=== PATIENT | male | born 1955 | race Caucasian/White ===

== ENCOUNTER 2017-12-15 20:01 | Emergency (ER) | payer BC, SELFPAY ==
[2017-12-15 20:03] VITALS: BP 160/87; PULSE 73; RESP 18; TEMP 36.8; O2SAT 97
--- NOTE | 2017-12-15 21:21 | W.ED.GENAD ---
Discharge Plan Disposition Patient Disposition: HOME Condition: Good Discharge Details Chief Complaint: DentalOral Clinical Impression: Swollen upper lip Primary Care Provider: Grey Zhang ED Provider: Ted Johnson Home Meds and New Rx's Prescriptions: New clindamycin HCl 150 mg capsule 450 mg PO TID Qty: 63 RF: 0 Continue naproxen sodium [Aleve] 220 MG tablet 220 mg PO daily prn RF: 0 melatonin 3 MG tablet 3 mg PO HS RF: 0 flaxseed oil 1,000 MG capsule 3 tab PO DAILY RF: 0 CENTRUM SILVER TABLET 1 EACH tablet 1 ea PO DAILY RF: 0 trazodone 50 MG tablet 50 mg PO HS Qty: 90 RF: 3 omeprazole 20 MG capsule,delayed release(DR/EC) 20 mg PO DAILY Qty: 90 RF: 3 Discharge Instructions Additional Instructions: At this point it is not clear what is causing the lip swelling. It is possible that it is an early infection but for now I would not start antibiotics. We will give you prescription for clindamycin so that if it becomes painful, more swollen, red would go ahead and start antibiotic. Follow-up with your dentist on Monday as planned. Return to ED for increasing pain, fever, swelling Discharge Data Discharge Date/Time-TO BE ENTERED AT DEPARTURE: 12/15/17 21:31 Medical Decision Making Patient with a firm nodular type lesion in the left upper lip which does make it appears swollen. It is not fluctuant. It is not tender. It is not erythematous. It is not associated with dental abscess. He does not appear to be an allergic type reaction. There is no obvious trauma. Possible that this is an early infection but I am not convinced that is the case. Over the weekend I will have him try hot compresses and just kind of see what happens. If it continues to get larger, painful, red I am providing him a prescription for clindamycin to start. He already has an appointment to see his dentist on Monday. Return to ED for any significant worsening symptoms. HPI General Mode of arrival: ambulatory. Date/Time Provider Initiated Documentation: 12/15/17 20:50. Limitations to Documentation: no limitations. Information obtained by: patient. HPI Narrative: Patient presents to ED with left upper lip swelling. Patient first noticed something earlier in the week. Per his inside part of the lip looked purplish. That is subsequently resolved. However, the lip seems to be getting bigger. It is not really painful at all. He has no difficulty breathing or swallowing. He does not have dental pain. He has no redness or warmth to the area. He otherwise feels well. There is no specific trauma that he relates. Today it seems to be getting larger in size so he came in for evaluation. Related Data Home Medications Medication Instructions Recorded Confirmed naproxen sodium [Aleve] 220 mg PO daily prn 06/05/12 12/15/17 Centrum Silver Tablet 1 ea PO DAILY 07/17/12 12/15/17 flaxseed oil 3 tab PO DAILY 07/17/12 12/15/17 melatonin 3 mg PO HS 07/17/12 12/15/17 trazodone 50 mg PO HS #90 tab 03/22/17 12/15/17 omeprazole 20 mg PO DAILY #90 tab-cap 04/28/17 12/15/17 clindamycin HCl 450 mg PO TID #63 cap 12/15/17 Previous Rx's Medication Instructions Recorded trazodone 50 mg PO HS #90 tab 03/22/17 omeprazole 20 mg PO DAILY #90 tab-cap 04/28/17 clindamycin HCl 450 mg PO TID #63 cap 12/15/17 Allergies Allergy/AdvReac Type Severity Reaction Status Date / Time gabapentin AdvReac Intermediate h/a's Unverified 12/15/17 20:05 erythromycin base AdvReac NAUSEA Unverified 12/15/17 20:05 General Stated Complaint: DentalOral YU: 4 Review of Systems Constitutional Denies chills, Denies fever(s), Denies headache(s), Denies malaise, Denies night sweats and Denies weight loss Eyes Denies eye discharge, Denies other visual disturbances and Denies eye pain ENT Denies dental pain, Denies otalgia, Denies facial pain, Denies headache(s), Reports lip swelling, Denies mouth pain, Denies nasal congestion, Denies neck pain, Denies sore throat, Denies throat swelling and Denies tongue swelling Cardiovascular Denies dyspnea Respiratory Denies dyspnea Musculoskeletal Denies neck pain Neurologic Denies headache(s) Hematologic/Lymphatic Denies lymphadenopathy Allergic/Immunologic Reports lip swelling, Denies throat swelling and Denies tongue swelling [facility] Family History Mother No problems noted. Father No problems noted. Sister No problems noted. Brother No problems noted. Brother No problems noted. Grandfather No problems noted. Grandfather Heart disease Grandmother No problems noted. Grandmother Cerebrovascular accident Medical History GERD (gastroesophageal reflux disease) (Chronic) Leukemia (Chronic) Social History Smoking/Tobacco Use Status: Never Surgical History Hernia Repair, Incisional Exam Const General: cooperative, healthy appearing and comfortable Orientation: alert and oriented x3 HENMT Head: normocephalic and atraumatic Ears: external ears normal General nose exam: external nose normal Face and sinus: normal facial exam and sinuses nontender Mouth: oral mucosae normal, tongue normal, oropharynx normal and lip abnormal (firm nontender nodule about the size of peanut in the left upper lip) Teeth and gingiva: dentition normal and gingiva normal Neck Neck: normal visual inspection, full ROM and no lymphadenopathy Neuro General: alert, oriented x3, no focal motor deficits and CN's II-XI intact bilaterally Course Vital Signs Temperature 98.2 F 12/15/17 20:03 Pulse 73 12/15/17 20:03 Respiratory Rate 18 12/15/17 20:03 Blood Pressure 160/87 H 12/15/17 20:03 Pulse Oximetry 97 12/15/17 20:03 Temperature 98.2 F 12/15/17 20:03 Temperature Source Temporal Artery Scan 12/15/17 20:03 Pulse 73 12/15/17 20:03 Respiratory Rate 18 12/15/17 20:03 Blood Pressure 160/87 H 12/15/17 20:03 Pulse Oximetry 97 12/15/17 20:03 Oxygen Delivery Method Room Air 12/15/17 20:03 Oxygen Flow Rate 0 12/15/17 20:03 Pain Level 0 12/15/17 20:03
--- NOTE | 2017-12-15 21:27 | ED.GENADUL_ITS ---
Discharge Plan Disposition Patient Disposition: HOME Condition: Good Discharge Details Chief Complaint: DentalOral Clinical Impression: Swollen upper lip Primary Care Provider: Grey Zhang ED Provider: Ted Johnson Home Meds and New Rx's Prescriptions: New clindamycin HCl 150 mg capsule 450 mg PO TID Qty: 63 RF: 0 Continue naproxen sodium [Aleve] 220 MG tablet 220 mg PO daily prn RF: 0 melatonin 3 MG tablet 3 mg PO HS RF: 0 flaxseed oil 1,000 MG capsule 3 tab PO DAILY RF: 0 CENTRUM SILVER TABLET 1 EACH tablet 1 ea PO DAILY RF: 0 trazodone 50 MG tablet 50 mg PO HS Qty: 90 RF: 3 omeprazole 20 MG capsule,delayed release(DR/EC) 20 mg PO DAILY Qty: 90 RF: 3 Discharge Instructions Additional Instructions: At this point it is not clear what is causing the lip swelling. It is possible that it is an early infection but for now I would not start antibiotics. We will give you prescription for clindamycin so that if it becomes painful, more swollen, red would go ahead and start antibiotic. Follow-up with your dentist on Monday as planned. Return to ED for increasing pain, fever, swelling Discharge Data Discharge Date/Time-TO BE ENTERED AT DEPARTURE: 12/15/17 21:31 Medical Decision Making Patient with a firm nodular type lesion in the left upper lip which does make it appears swollen. It is not fluctuant. It is not tender. It is not erythematous. It is not associated with dental abscess. He does not appear to be an allergic type reaction. There is no obvious trauma. Possible that this is an early infection but I am not convinced that is the case. Over the weekend I will have him try hot compresses and just kind of see what happens. If it continues to get larger, painful, red I am providing him a prescription for clindamycin to start. He already has an appointment to see his dentist on Monday. Return to ED for any significant worsening symptoms. HPI General Mode of arrival: ambulatory . Date/Time Provider Initiated Documentation: 12/15/17 20:50 . Limitations to Documentation: no limitations . Information obtained by: patient . HPI Narrative: Patient presents to ED with left upper lip swelling. Patient first noticed something earlier in the week. Per his inside part of the lip looked purplish. That is subsequently resolved. However, the lip seems to be getting bigger. It is not really painful at all. He has no difficulty breathing or swallowing. He does not have dental pain. He has no redness or warmth to the area. He otherwise feels well. There is no specific trauma that he relates. Today it seems to be getting larger in size so he came in for evaluation. Related Data Home Medications Medication Instructions Recorded Confirmed naproxen sodium [Aleve] 220 mg PO daily prn 06/05/12 12/15/17 Centrum Silver Tablet 1 ea PO DAILY 07/17/12 12/15/17 flaxseed oil 3 tab PO DAILY 07/17/12 12/15/17 melatonin 3 mg PO HS 07/17/12 12/15/17 trazodone 50 mg PO HS #90 tab 03/22/17 12/15/17 omeprazole 20 mg PO DAILY #90 tab-cap 04/28/17 12/15/17 clindamycin HCl 450 mg PO TID #63 cap 12/15/17 Previous Rx's Medication Instructions Recorded trazodone 50 mg PO HS #90 tab 03/22/17 omeprazole 20 mg PO DAILY #90 tab-cap 04/28/17 clindamycin HCl 450 mg PO TID #63 cap 12/15/17 Allergies Allergy/AdvReac Type Severity Reaction Status Date / Time gabapentin AdvReac Intermediate h/a's Unverified 12/15/17 20:05 erythromycin base AdvReac NAUSEA Unverified 12/15/17 20:05 General Stated Complaint: DentalOral YU: 4 Review of Systems Constitutional Denies chills, Denies fever(s), Denies headache(s), Denies malaise, Denies night sweats and Denies weight loss Eyes Denies eye discharge, Denies other visual disturbances and Denies eye pain ENT Denies dental pain, Denies otalgia, Denies facial pain, Denies headache(s), Reports lip swelling, Denies mouth pain, Denies nasal congestion, Denies neck pain, Denies sore throat, Denies throat swelling and Denies tongue swelling Cardiovascular Denies dyspnea Respiratory Denies dyspnea Musculoskeletal Denies neck pain Neurologic Denies headache(s) Hematologic/Lymphatic Denies lymphadenopathy Allergic/Immunologic Reports lip swelling, Denies throat swelling and Denies tongue swelling [facility] Family History Mother No problems noted. Father No problems noted. Sister No problems noted. Brother No problems noted. Brother No problems noted. Grandfather No problems noted. Grandfather Heart disease Grandmother No problems noted. Grandmother Cerebrovascular accident Medical History GERD (gastroesophageal reflux disease) (Chronic) Leukemia (Chronic) Social History Smoking/Tobacco Use Status: Never Surgical History Hernia Repair, Incisional Exam Const General: cooperative, healthy appearing and comfortable Orientation: alert and oriented x3 HENMT Head: normocephalic and atraumatic Ears: external ears normal General nose exam: external nose normal Face and sinus: normal facial exam and sinuses nontender Mouth: oral mucosae normal, tongue normal, oropharynx normal and lip abnormal ( firm nontender nodule about the size of peanut in the left upper lip) Teeth and gingiva: dentition normal and gingiva normal Neck Neck: normal visual inspection, full ROM and no lymphadenopathy Neuro General: alert, oriented x3, no focal motor deficits and CN's II-XI intact bilaterally Course Vital Signs Temperature 98.2 F 12/15/17 20:03 Pulse 73 12/15/17 20:03 Respiratory Rate 18 12/15/17 20:03 Blood Pressure 160/87 H 12/15/17 20:03 Pulse Oximetry 97 12/15/17 20:03 Temperature 98.2 F 12/15/17 20:03 Temperature Source Temporal Artery Scan 12/15/17 20:03 Pulse 73 12/15/17 20:03 Respiratory Rate 18 12/15/17 20:03 Blood Pressure 160/87 H 12/15/17 20:03 Pulse Oximetry 97 12/15/17 20:03 Oxygen Delivery Method Room Air 12/15/17 20:03 Oxygen Flow Rate 0 12/15/17 20:03 Pain Level 0 12/15/17 20:03
[2017-12-15 21:30] VITALS: BP 160/87; PULSE 73; RESP 18; TEMP 36.8; O2SAT 97
== END 2017-12-15 21:31 | disposition home or self-care (01) ==
PROVIDERS: Emergency Provider Emergency Medicine; PCP Emergency Medicine
DX: R60.0 Localized edema (principal); R22.0 Localized swelling, mass and lump, head
CPT/HCPCS: 99283

== ENCOUNTER 2017-12-27 14:06 | Emergency (ER) | payer BC, SELFPAY ==
[2017-12-27 14:15] VITALS: BP 112/85; PULSE 87; RESP 16; TEMP 37.1; O2SAT 95
[2017-12-27 16:42] LABS: Abs Immature Grans 0.01 k/cumm (0.0-0.09); Absolute Basophil Count 0.01 k/cumm (0.0-0.2); Absolute Eosinophil Count 0.07 k/cumm (0.0-0.7); Absolute Lymphocyte Count 1.05 k/cumm (1.2-3.4); Absolute Monocyte Count 1.25 k/cumm (0.11-0.7); Absolute Neutrophil Count 1.84 k/cumm (1.2-6.7); Basophils % 0.2; Eosinophils % 1.7; HCT 39.1 % (40.0-50.0); HGB 12.8 g/dL (13.5-17.5); Immature Grans % 0.2; Lymphocytes % 24.8; Mean Corp. HGB Concentration 32.7 g/dL (32.0-36.0); Mean Corpuscular Hemoglobin 31.3 pg (27.0-33.0); Mean Corpuscular Volume 95.6 fL (80-95); Mean Platelet Volume 7.9 fL (8.0-11.0); Monocytes % 29.6; Neutrophils % 43.5; Platelet Count 155 x1000/uL (130-400); RBC 4.09 m/cumm (4.50-6.00); RBC Distribution Width 14.9 % (11.8-14.1); White Blood Cell Count 4.23 k/cumm (4.4-10.8)
[2017-12-27 17:18] LABS: ALT 29 U/L (12-78); AST 26 U/L (15-37); Albumin 3.2 g/dL (3.4-5.0); Alkaline Phosphatase 67 U/L (46-116); Anion Gap 6.8 mmol/L (3-11); BUN 15 mg/dL (7-18); Bilirubin, Total 0.5 mg/dL (0.2-1.0); CO2 31.2 mmol/L (21.0-32.0); Calcium 8.6 mg/dL (8.5-10.1); Chloride 103 mmol/L (98-107); Glucose 81 mg/dL (70-100); Potassium 3.5 mmol/L (3.5-5.1); Sodium 141 mmol/L (136-145); Total Protein 6.8 g/dL (6.4-8.2)
--- NOTE | 2017-12-27 19:36 | W.ED.GENAD ---
Discharge Plan Disposition Patient Disposition: HOME Condition: Stable Discharge Details Chief Complaint: Nausea/Vomit/Diar Clinical Impression: Diarrhea, Anemia Primary Care Provider: Grey Zhang ED Provider: Jeimy Langford Home Meds and New Rx's Prescriptions: Continue naproxen sodium [Aleve] 220 MG tablet 220 mg PO daily prn RF: 0 CENTRUM SILVER TABLET 1 EACH tablet 1 ea PO DAILY RF: 0 trazodone 50 MG tablet 50 mg PO HS Qty: 90 RF: 3 omeprazole 20 MG capsule,delayed release(DR/EC) 20 mg PO DAILY Qty: 90 RF: 3 Discontinued clindamycin HCl 150 mg capsule 450 mg PO TID Qty: 63 RF: 0 No Action azithromycin 250 mg tablet See Label Instructions PO .COMPLEX Qty: 6 RF: 0 flaxseed oil 1,000 mg capsule 2,000 mg PO DAILY RF: 0 melatonin 3 mg tablet 6 mg PO HS RF: 0 Discharge Instructions Instructions: Acute Diarrhea (ED), Anemia (ED) Additional Instructions: Please return immediately to the emergency department if you develop any new or worsening symptoms or if you become otherwise concerned. It is extremely important that you make an appointment to be seen by your primary care doctor within the next 1-2 weeks in follow-up this visit. 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 Pt is very well and non-toxic appearing on exam. Concern for infectious diarrhea, possible lyte derangement given time course, less likely GI bleed. Exam/hx not c/w pancreatitis, acute aortic etiology, appendicitis, sepsis. Plan for screening labs, stool studies. Hemoccult postiive. Labs okay but with mild anemia, plan for repeat H&H. Repeat okay. Will hold abx pending stool studies. Lengthy discussion with Pt re: RTED precautions and importance of outpt f/u with PCP. Pt is amenable to the plan. Medical Records Medical records reviewed: Yes I reviewed the patient's medical records. Lab Data Lab results reviewed: Yes I reviewed the patient's lab results. 12/27/17 17:40 Stool Clostridium difficile Screen - Final Laboratory Tests Range/Units 12/27/17 12/27/17 12/27/17 16:35 16:35 17:00 WBC (4.4-10.8) k/cumm 4.23 L RBC (4.50-6.00) m/cumm 4.09 L Hgb (13.5-17.5) g/dL 12.8 L Hct (40.0-50.0) % 39.1 L MCV (80-95) fL 95.6 H MCH (27.0-33.0) pg 31.3 MCHC (32.0-36.0) g/dL 32.7 RDW (11.8-14.1) % 14.9 H Plt Count (130-400) x1000/uL 155 MPV (8.0-11.0) fL 7.9 L Immature Gran % 0.2 Neutrophils % 43.5 Lymphocytes % 24.8 Monocytes % 29.6 Eosinophils % 1.7 Basophils % 0.2 Absolute Neutrophils (1.2-6.7) k/cumm 1.84 Absolute Lymphocytes (1.2-3.4) k/cumm 1.05 L Absolute Monocytes (0.11-0.7) k/cumm 1.25 H Absolute Eosinophils (0.0-0.7) k/cumm 0.07 Absolute Basophils (0.0-0.2) k/cumm 0.01 Sodium (136-145) mmol/L 141 Potassium (3.5-5.1) mmol/L 3.5 Chloride (98-107) mmol/L 103 Carbon Dioxide (21.0-32.0) mmol/L 31.2 Anion Gap (3-11) mmol/L 6.8 BUN (7-18) mg/dL 15 Creatinine (0.70-1.30) mg/dL 0.90 Estimated GFR/1.73 m2 (mL/min/1.73m2) >= 60.00 Glucose (70-100) mg/dL 81 Calcium (8.5-10.1) mg/dL 8.6 Total Bilirubin (0.2-1.0) mg/dL 0.5 AST (15-37) U/L 26 ALT (12-78) U/L 29 Alkaline Phosphatase (46-116) U/L 67 Total Protein (6.4-8.2) g/dL 6.8 Albumin (3.4-5.0) g/dL 3.2 L Stool Source Stool Campylobacter PCR See comments A Stool Salmonella PCR See comments Stool Shigella PCR See comments Cryptosporidium/Giardia Shiga Toxin (PCR) See comments Parasite Rprt Status Range/Units 12/27/17 12/27/17 17:40 20:00 WBC (4.4-10.8) k/cumm RBC (4.50-6.00) m/cumm Hgb (13.5-17.5) g/dL 12.9 L Hct (40.0-50.0) % 39.7 L MCV (80-95) fL MCH (27.0-33.0) pg MCHC (32.0-36.0) g/dL RDW (11.8-14.1) % Plt Count (130-400) x1000/uL MPV (8.0-11.0) fL Immature Gran % Neutrophils % Lymphocytes % Monocytes % Eosinophils % Basophils % Absolute Neutrophils (1.2-6.7) k/cumm Absolute Lymphocytes (1.2-3.4) k/cumm Absolute Monocytes (0.11-0.7) k/cumm Absolute Eosinophils (0.0-0.7) k/cumm Absolute Basophils (0.0-0.2) k/cumm Sodium (136-145) mmol/L Potassium (3.5-5.1) mmol/L Chloride (98-107) mmol/L Carbon Dioxide (21.0-32.0) mmol/L Anion Gap (3-11) mmol/L BUN (7-18) mg/dL Creatinine (0.70-1.30) mg/dL Estimated GFR/1.73 m2 (mL/min/1.73m2) Glucose (70-100) mg/dL Calcium (8.5-10.1) mg/dL Total Bilirubin (0.2-1.0) mg/dL AST (15-37) U/L ALT (12-78) U/L Alkaline Phosphatase (46-116) U/L Total Protein (6.4-8.2) g/dL Albumin (3.4-5.0) g/dL Stool Source (see note) Stool Campylobacter PCR Stool Salmonella PCR Stool Shigella PCR Cryptosporidium/Giardia (see note) Shiga Toxin (PCR) Parasite Rprt Status (see note) HPI General Mode of arrival: ambulatory. Date/Time Provider Initiated Documentation: 12/27/17 14:23. Limitations to Documentation: no limitations. Information obtained by: patient, RN notes reviewed and old records reviewed. 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 Pt reports that 5 days ago he developed watery diarrhea, having multiple episodes per day. Frequency of bowel movements has decreased, but watery BMs persist. Mild intermittent abdominal cramping just prior to BMs, but no current pain. Pt reports color of stool as light brown without blood. No fevers, no n/v, no rash, no SOB, no cough, no weakness, no n/t. Never with similar symptoms in the past. No recent abx. No recent travel. No illness. Pt with normal appetite but has been eating somewhat less than usual as eating seems to worsen frequency of BMs. Took immodium several times a few days ago without change in symptoms. Related Data Home Medications Medication Instructions Recorded Confirmed naproxen sodium [Aleve] 220 mg PO daily prn 06/05/12 01/04/18 Centrum Silver Tablet 1 ea PO DAILY 07/17/12 01/04/18 trazodone 50 mg PO HS #90 tab 03/22/17 01/04/18 omeprazole 20 mg PO DAILY #90 tab-cap 04/28/17 01/04/18 azithromycin 250 mg tablet See Label Instructions PO .COMPLEX 01/04/18 01/04/18 #6 tab flaxseed oil 1,000 mg capsule 2,000 mg PO DAILY cap 01/04/18 01/04/18 melatonin 3 mg tablet 6 mg PO HS tab 01/04/18 01/04/18 Previous Rx's Medication Instructions Recorded trazodone 50 mg PO HS #90 tab 03/22/17 omeprazole 20 mg PO DAILY #90 tab-cap 04/28/17 azithromycin 250 mg tablet See Label Instructions PO .COMPLEX 01/04/18 #6 tab Allergies Allergy/AdvReac Type Severity Reaction Status Date / Time gabapentin AdvReac Intermediate h/a's Unverified 01/04/18 08:59 erythromycin base AdvReac NAUSEA Unverified 01/04/18 08:59 General Stated Complaint: Nausea/Vomit/Diar YU: 3 Review of Systems Review of Systems Constitutional: denies fevers Eyes: denies eye pain ENT: denies facial pain, dental pain, sore throat Cardiovascular: denies chest pain, edema Respiratory: denies SOB, cough GI: denies vomiting, reports mild intermittent abdominal pain, diarrhea : denies flank pain MSK: denies back pain, neck pain, arthralgias, myalgias Skin: denies rash Neuro: denies headaches, lightheadedness, weakness Exam Narrative Exam Narrative: Constitutional: well and [id number], pleasant, conversing normally HENT: head atraumatic, normocephalic normal inspection, mucous membranes moist Eyes: conjunctiva normal, sclera normal, pupils 3mm b/l Neck: no stridor, normal ROM, trachea midline Chest: normal inspection Resp: normal work of breathing, LCTAB Cardio: normal rate, normal rhythm, no murmur appreciated GI: abdomen soft, non-tender, non-distended Back: normal inspection, no rash Skin: warm, dry, normal color, no rash Neuro: alert, not altered, grossly non-focal, normal tone Ext: no edema Psych: normal mood, normal affect, normal behavior Course Vital Signs Temperature 37.1 C 12/27/17 14:15 Pulse 87 12/27/17 14:15 Respiratory Rate 16 12/27/17 14:15 Blood Pressure 112/85 12/27/17 14:15 Pulse Oximetry 95 12/27/17 14:15 Temperature 37.1 C 12/27/17 14:15 Temperature Source Skin 12/27/17 14:15 Pulse 87 12/27/17 14:15 Respiratory Rate 16 12/27/17 14:15 Respiratory Effort 12/27/17 14:19 Blood Pressure 112/85 12/27/17 14:15 Blood Pressure Position Sitting 12/27/17 14:15 Pulse Oximetry 95 12/27/17 14:15 Oxygen Delivery Method Room Air 12/27/17 14:15 Oxygen Flow Rate 0 12/27/17 14:15 Pain Level 3 12/27/17 14:15 Lab/Test Results Lab/Test Results: 12/27/17 17:40 Stool Clostridium difficile Screen - Final Laboratory Tests Range/Units 12/27/17 12/27/17 16:35 16:35 WBC (4.4-10.8) k/cumm 4.23 L RBC (4.50-6.00) m/cumm 4.09 L Hgb (13.5-17.5) g/dL 12.8 L Hct (40.0-50.0) % 39.1 L MCV (80-95) fL 95.6 H MCH (27.0-33.0) pg 31.3 MCHC (32.0-36.0) g/dL 32.7 RDW (11.8-14.1) % 14.9 H Plt Count (130-400) x1000/uL 155 MPV (8.0-11.0) fL 7.9 L Immature Gran % 0.2 Neutrophils % 43.5 Lymphocytes % 24.8 Monocytes % 29.6 Eosinophils % 1.7 Basophils % 0.2 Absolute Neutrophils (1.2-6.7) k/cumm 1.84 Absolute Lymphocytes (1.2-3.4) k/cumm 1.05 L Absolute Monocytes (0.11-0.7) k/cumm 1.25 H Absolute Eosinophils (0.0-0.7) k/cumm 0.07 Absolute Basophils (0.0-0.2) k/cumm 0.01 Sodium (136-145) mmol/L 141 Potassium (3.5-5.1) mmol/L 3.5 Chloride (98-107) mmol/L 103 Carbon Dioxide (21.0-32.0) mmol/L 31.2 Anion Gap (3-11) mmol/L 6.8 BUN (7-18) mg/dL 15 Creatinine (0.70-1.30) mg/dL 0.90 Estimated GFR/1.73 m2 (mL/min/1.73m2) >= 60.00 Glucose (70-100) mg/dL 81 Calcium (8.5-10.1) mg/dL 8.6 Total Bilirubin (0.2-1.0) mg/dL 0.5 AST (15-37) U/L 26 ALT (12-78) U/L 29 Alkaline Phosphatase (46-116) U/L 67 Total Protein (6.4-8.2) g/dL 6.8 Albumin (3.4-5.0) g/dL 3.2 L
[2017-12-27 20:07] LABS: HCT 39.7 % (40.0-50.0); HGB 12.9 g/dL (13.5-17.5)
[2017-12-27 20:23] VITALS: BP 120/58; PULSE 78; RESP 16; TEMP 36.8; O2SAT 98
[2017-12-29 14:00] LABS: Campylobacter PCR SEE COMMENTS; Salmonella PCR SEE COMMENTS; Shiga Toxin PCR SEE COMMENTS; Shigella/Enteroinvasive Ecoli SEE COMMENTS
--- NOTE | 2018-01-01 11:24 | W.ED.FU ---
Follow Up Plan: Discussed with patient positive Campylobacter result reported by [facility] of [facility]. We will place him on 3 days of azithromycin to be called in to [facility]
--- NOTE | 2018-01-01 11:24 | ED.FU.B_ITS ---
Follow Up Plan: Discussed with patient positive Campylobacter result reported by [facility]. We will place him on 3 days of azithromycin to be called in to [facility]
--- NOTE | 2018-01-01 11:38 | NUR.NOTE ---
Nursing Note: Anabel Glez RN from the [facility] ([phone]. She stated the patient is camplobacter positive. Dr. Sin notified the patient of this test result and Azithromycin 500mg PO QD for [phone] I called Anabel Glez back and left a message for her that the patient was notified of this result as she requested and was put on the antibiotic. Bindu Chan.
--- NOTE | 2018-01-09 21:20 | ED.GENADUL_ITS ---
Discharge Plan Disposition Patient Disposition: HOME Condition: Stable Discharge Details Chief Complaint: Nausea/Vomit/Diar Clinical Impression: Diarrhea, Anemia Primary Care Provider: Grey Zhang ED Provider: Jeimy Langford Home Meds and New Rx's Prescriptions: Continue naproxen sodium [Aleve] 220 MG tablet 220 mg PO daily prn RF: 0 CENTRUM SILVER TABLET 1 EACH tablet 1 ea PO DAILY RF: 0 trazodone 50 MG tablet 50 mg PO HS Qty: 90 RF: 3 omeprazole 20 MG capsule,delayed release(DR/EC) 20 mg PO DAILY Qty: 90 RF: 3 Discontinued clindamycin HCl 150 mg capsule 450 mg PO TID Qty: 63 RF: 0 No Action azithromycin 250 mg tablet See Label Instructions PO .COMPLEX Qty: 6 RF: 0 flaxseed oil 1,000 mg capsule 2,000 mg PO DAILY RF: 0 melatonin 3 mg tablet 6 mg PO HS RF: 0 Discharge Instructions Instructions: Acute Diarrhea (ED), Anemia (ED) Additional Instructions: Please return immediately to the emergency department if you develop any new or worsening symptoms or if you become otherwise concerned. It is extremely important that you make an appointment to be seen by your primary care doctor within the next 1-2 weeks in follow-up this visit. 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 Pt is very well and non-toxic appearing on exam. Concern for infectious diarrhea , possible lyte derangement given time course, less likely GI bleed. Exam/hx not c/w pancreatitis, acute aortic etiology, appendicitis, sepsis. Plan for screening labs, stool studies. Hemoccult postiive. Labs okay but with mild anemia, plan for repeat H&H. Repeat okay. Will hold abx pending stool studies. Lengthy discussion with Pt re : RTED precautions and importance of outpt f/u with PCP. Pt is amenable to the plan. Medical Records Medical records reviewed: Yes I reviewed the patient's medical records. Lab Data Lab results reviewed: Yes I reviewed the patient's lab results. 12/27/17 17:40 Stool Clostridium difficile Screen - Final Laboratory Tests Range/Units 12/27/17 12/27/17 12/27/17 16:35 16:35 17:00 WBC (4.4-10.8) k/cumm 4.23 L RBC (4.50-6.00) m/cumm 4.09 L Hgb (13.5-17.5) g/dL 12.8 L Hct (40.0-50.0) % 39.1 L MCV (80-95) fL 95.6 H MCH (27.0-33.0) pg 31.3 MCHC (32.0-36.0) g/dL 32.7 RDW (11.8-14.1) % 14.9 H Plt Count (130-400) x1000/uL 155 MPV (8.0-11.0) fL 7.9 L Immature Gran % 0.2 Neutrophils % 43.5 Lymphocytes % 24.8 Monocytes % 29.6 Eosinophils % 1.7 Basophils % 0.2 Absolute Neutrophils (1.2-6.7) k/cumm 1.84 Absolute Lymphocytes (1.2-3.4) k/cumm 1.05 L Absolute Monocytes (0.11-0.7) k/cumm 1.25 H Absolute Eosinophils (0.0-0.7) k/cumm 0.07 Absolute Basophils (0.0-0.2) k/cumm 0.01 Sodium (136-145) mmol/L 141 Potassium (3.5-5.1) mmol/L 3.5 Chloride (98-107) mmol/L 103 Carbon Dioxide (21.0-32.0) mmol/L 31.2 Anion Gap (3-11) mmol/L 6.8 BUN (7-18) mg/dL 15 Creatinine (0.70-1.30) mg/dL 0.90 Estimated GFR/1.73 m2 (mL/min/1.73m2) >= 60.00 Glucose (70-100) mg/dL 81 Calcium (8.5-10.1) mg/dL 8.6 Total Bilirubin (0.2-1.0) mg/dL 0.5 AST (15-37) U/L 26 ALT (12-78) U/L 29 Alkaline Phosphatase (46-116) U/L 67 Total Protein (6.4-8.2) g/dL 6.8 Albumin (3.4-5.0) g/dL 3.2 L Stool Source Stool Campylobacter PCR See comments A Stool Salmonella PCR See comments Stool Shigella PCR See comments Cryptosporidium/Giardia Shiga Toxin (PCR) See comments Parasite Rprt Status Range/Units 12/27/17 12/27/17 17:40 20:00 WBC (4.4-10.8) k/cumm RBC (4.50-6.00) m/cumm Hgb (13.5-17.5) g/dL 12.9 L Hct (40.0-50.0) % 39.7 L MCV (80-95) fL MCH (27.0-33.0) pg MCHC (32.0-36.0) g/dL RDW (11.8-14.1) % Plt Count (130-400) x1000/uL MPV (8.0-11.0) fL Immature Gran % Neutrophils % Lymphocytes % Monocytes % Eosinophils % Basophils % Absolute Neutrophils (1.2-6.7) k/cumm Absolute Lymphocytes (1.2-3.4) k/cumm Absolute Monocytes (0.11-0.7) k/cumm Absolute Eosinophils (0.0-0.7) k/cumm Absolute Basophils (0.0-0.2) k/cumm Sodium (136-145) mmol/L Potassium (3.5-5.1) mmol/L Chloride (98-107) mmol/L Carbon Dioxide (21.0-32.0) mmol/L Anion Gap (3-11) mmol/L BUN (7-18) mg/dL Creatinine (0.70-1.30) mg/dL Estimated GFR/1.73 m2 (mL/min/1.73m2) Glucose (70-100) mg/dL Calcium (8.5-10.1) mg/dL Total Bilirubin (0.2-1.0) mg/dL AST (15-37) U/L ALT (12-78) U/L Alkaline Phosphatase (46-116) U/L Total Protein (6.4-8.2) g/dL Albumin (3.4-5.0) g/dL Stool Source (see note) Stool Campylobacter PCR Stool Salmonella PCR Stool Shigella PCR Cryptosporidium/Giardia (see note) Shiga Toxin (PCR) Parasite Rprt Status (see note) HPI General Mode of arrival: ambulatory . Date/Time Provider Initiated Documentation: 12/27/17 14:23 . Limitations to Documentation: no limitations . Information obtained by: patient, RN notes reviewed and old records reviewed . 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 Pt reports that 5 days ago he developed watery diarrhea, having multiple episodes per day. Frequency of bowel movements has decreased, but watery BMs persist. Mild intermittent abdominal cramping just prior to BMs, but no current pain. Pt reports color of stool as light brown without blood. No fevers, no n/v, no rash, no SOB, no cough, no weakness, no n/ t. Never with similar symptoms in the past. No recent abx. No recent travel. No illness. Pt with normal appetite but has been eating somewhat less than usual as eating seems to worsen frequency of BMs. Took immodium several times a few days ago without change in symptoms. Related Data Home Medications Medication Instructions Recorded Confirmed naproxen sodium [Aleve] 220 mg PO daily prn 06/05/12 01/04/18 Centrum Silver Tablet 1 ea PO DAILY 07/17/12 01/04/18 trazodone 50 mg PO HS #90 tab 03/22/17 01/04/18 omeprazole 20 mg PO DAILY #90 tab-cap 04/28/17 01/04/18 azithromycin 250 mg tablet See Label Instructions PO .COMPLEX 01/04/18 01/04/18 #6 tab flaxseed oil 1,000 mg capsule 2,000 mg PO DAILY cap 01/04/18 01/04/18 melatonin 3 mg tablet 6 mg PO HS tab 01/04/18 01/04/18 Previous Rx's Medication Instructions Recorded trazodone 50 mg PO HS #90 tab 03/22/17 omeprazole 20 mg PO DAILY #90 tab-cap 04/28/17 azithromycin 250 mg tablet See Label Instructions PO .COMPLEX 01/04/18 #6 tab Allergies Allergy/AdvReac Type Severity Reaction Status Date / Time gabapentin AdvReac Intermediate h/a's Unverified 01/04/18 08:59 erythromycin base AdvReac NAUSEA Unverified 01/04/18 08:59 General Stated Complaint: Nausea/Vomit/Diar YU: 3 Review of Systems Review of Systems Constitutional: denies fevers Eyes: denies eye pain ENT: denies facial pain, dental pain, sore throat Cardiovascular: denies chest pain, edema Respiratory: denies SOB, cough GI: denies vomiting, reports mild intermittent abdominal pain, diarrhea : denies flank pain MSK: denies back pain, neck pain, arthralgias, myalgias Skin: denies rash Neuro: denies headaches, lightheadedness, weakness Exam Narrative Exam Narrative: Constitutional: well and [id number], pleasant, conversing normally HENT: head atraumatic, normocephalic normal inspection, mucous membranes moist Eyes: conjunctiva normal, sclera normal, pupils 3mm b/l Neck: no stridor, normal ROM, trachea midline Chest: normal inspection Resp: normal work of breathing, LCTAB Cardio: normal rate, normal rhythm, no murmur appreciated GI: abdomen soft, non-tender, non-distended Back: normal inspection, no rash Skin: warm, dry, normal color, no rash Neuro: alert, not altered, grossly non-focal, normal tone Ext: no edema Psych: normal mood, normal affect, normal behavior Course Vital Signs Temperature 37.1 C 12/27/17 14:15 Pulse 87 12/27/17 14:15 Respiratory Rate 16 12/27/17 14:15 Blood Pressure 112/85 12/27/17 14:15 Pulse Oximetry 95 12/27/17 14:15 Temperature 37.1 C 12/27/17 14:15 Temperature Source Skin 12/27/17 14:15 Pulse 87 12/27/17 14:15 Respiratory Rate 16 12/27/17 14:15 Respiratory Effort 12/27/17 14:19 Blood Pressure 112/85 12/27/17 14:15 Blood Pressure Position Sitting 12/27/17 14:15 Pulse Oximetry 95 12/27/17 14:15 Oxygen Delivery Method Room Air 12/27/17 14:15 Oxygen Flow Rate 0 12/27/17 14:15 Pain Level 3 12/27/17 14:15 Lab/Test Results Lab/Test Results: 12/27/17 17:40 Stool Clostridium difficile Screen - Final Laboratory Tests Range/Units 12/27/17 12/27/17 16:35 16:35 WBC (4.4-10.8) k/cumm 4.23 L RBC (4.50-6.00) m/cumm 4.09 L Hgb (13.5-17.5) g/dL 12.8 L Hct (40.0-50.0) % 39.1 L MCV (80-95) fL 95.6 H MCH (27.0-33.0) pg 31.3 MCHC (32.0-36.0) g/dL 32.7 RDW (11.8-14.1) % 14.9 H Plt Count (130-400) x1000/uL 155 MPV (8.0-11.0) fL 7.9 L Immature Gran % 0.2 Neutrophils % 43.5 Lymphocytes % 24.8 Monocytes % 29.6 Eosinophils % 1.7 Basophils % 0.2 Absolute Neutrophils (1.2-6.7) k/cumm 1.84 Absolute Lymphocytes (1.2-3.4) k/cumm 1.05 L Absolute Monocytes (0.11-0.7) k/cumm 1.25 H Absolute Eosinophils (0.0-0.7) k/cumm 0.07 Absolute Basophils (0.0-0.2) k/cumm 0.01 Sodium (136-145) mmol/L 141 Potassium (3.5-5.1) mmol/L 3.5 Chloride (98-107) mmol/L 103 Carbon Dioxide (21.0-32.0) mmol/L 31.2 Anion Gap (3-11) mmol/L 6.8 BUN (7-18) mg/dL 15 Creatinine (0.70-1.30) mg/dL 0.90 Estimated GFR/1.73 m2 (mL/min/1.73m2) >= 60.00 Glucose (70-100) mg/dL 81 Calcium (8.5-10.1) mg/dL 8.6 Total Bilirubin (0.2-1.0) mg/dL 0.5 AST (15-37) U/L 26 ALT (12-78) U/L 29 Alkaline Phosphatase (46-116) U/L 67 Total Protein (6.4-8.2) g/dL 6.8 Albumin (3.4-5.0) g/dL 3.2 L
== END 2017-12-27 20:30 | disposition home or self-care (01) ==
PROVIDERS: Emergency Provider Student in an Organized Health Care Education/Training Program; PCP Emergency Medicine
DX: R19.7 Diarrhea, unspecified (principal); D64.9 Anemia, unspecified; A04.72 Enterocolitis due to Clostridium difficile, not specified as recurrent
CPT/HCPCS: 80053; 87329; 87505; 99284; 85014; 85018; 85025; 87324

== ENCOUNTER 2018-01-04 09:53 | Outpatient (CLI) | payer BC, SELFPAY ==
[2018-01-04 13:12] LABS: Abs Immature Grans 0.02 k/cumm (0.0-0.09); Absolute Basophil Count 0.02 k/cumm (0.0-0.2); Absolute Lymphocyte Count 1.15 k/cumm (1.2-3.4); Absolute Monocyte Count 0.94 k/cumm (0.11-0.7); Absolute Neutrophil Count 6.35 k/cumm (1.2-6.7); Basophils % 0.2; Eosinophils % 2.3; HCT 42.1 % (40.0-50.0); HGB 13.1 g/dL (13.5-17.5); Immature Grans % 0.2; Lymphocytes % 13.2; Mean Corp. HGB Concentration 31.1 g/dL (32.0-36.0); Mean Corpuscular Volume 96.6 fL (80-95); Mean Platelet Volume 9.4 fL (8.0-11.0); Monocytes % 10.8; Neutrophils % 73.3; Platelet Count 151 x1000/uL (130-400); RBC 4.36 m/cumm (4.50-6.00); White Blood Cell Count 8.68 k/cumm (4.4-10.8)
[2018-01-04 13:35] LABS: ALT 57 U/L (12-78); AST 30 U/L (15-37); Albumin 3.6 g/dL (3.4-5.0); Alkaline Phosphatase 97 U/L (46-116); Anion Gap 10.4 mmol/L (3-11); BUN 21 mg/dL (7-18); Bilirubin, Total 0.4 mg/dL (0.2-1.0); CO2 30.6 mmol/L (21.0-32.0); CREATININE 0.99 mg/dL (0.70-1.30); Calcium 9.4 mg/dL (8.5-10.1); Chloride 103 mmol/L (98-107); Glucose 95 mg/dL (70-100); Potassium 4.2 mmol/L (3.5-5.1); Sodium 144 mmol/L (136-145); Total Protein 7.1 g/dL (6.4-8.2)
[2018-01-04 13:36] LABS: Iron 66 ug/dL (50-175); Total Iron Binding Capacity 280 ug/dL (250-450); Transferrin Sat 24 % (20-55)
[2018-01-04 16:41] LABS: Folate 19.6 ng/mL (8.6-20.0)
== END 2018-01-04 10:13 ==
PROVIDERS: PCP Emergency Medicine; Visit Provider Internal Medicine
DX: R19.7 Diarrhea, unspecified (principal); D64.9 Anemia, unspecified
CPT/HCPCS: 36415; 80053; 82746; 83540; 83550; 85025

== ENCOUNTER 2018-03-30 11:23 | Outpatient (CLI) | payer BC, SELFPAY ==
[2018-03-30 13:22] LABS: Iron 77 ug/dL (50-175); Total Iron Binding Capacity 329 ug/dL (250-450); Transferrin Sat 23 % (20-55)
[2018-03-30 13:36] LABS: Ferritin 68 ng/mL (8-388)
[2018-04-02 08:53] LABS: PSA, Screening 0.8 ng/ml (0-4.5)
== END 2018-03-30 11:43 ==
PROVIDERS: PCP Emergency Medicine; Visit Provider Emergency Medicine
DX: E61.1 Iron deficiency (principal); Z12.5 Encounter for screening for malignant neoplasm of prostate
CPT/HCPCS: 36415; 84153; 82728; 83540; 83550

== ENCOUNTER 2018-08-27 13:13 | Outpatient (CLI) | payer BC, SELFPAY ==
--- NOTE | 2018-08-27 13:12 | DI.RAD_ITS ---
SYMPTOM/DIAGNOSIS: F/U LT SHOULDER CALCIFIC TENDINITIS LEFT SHOULDER: Three views. Comparison 05/03/17. There are again seen calcifications adjacent to the humeral head laterally consistent with calcific tendinitis. Mild degenerative changes are seen at the acromioclavicular joint. The bones are intact and normally mineralized. IMPRESSION: Findings of degenerative changes of the shoulder left. Calcific tendinitis.
== END 2018-08-27 13:33 ==
PROVIDERS: PCP Emergency Medicine; Visit Provider Student in an Organized Health Care Education/Training Program
DX: M75.32 Calcific tendinitis of left shoulder (principal); M19.012 Primary osteoarthritis, left shoulder
CPT/HCPCS: 73030

== ENCOUNTER 2018-10-02 08:01 | Outpatient (CLI) | payer BC, SELFPAY ==
--- NOTE | 2018-10-02 08:00 | DI.RAD_ITS ---
SYMPTOM/DIAGNOSIS: DYSPNEA ON EXERTION, R06.09 PA AND LATERAL CHEST: Comparison is made with 03/11/13. The heart is normal in size. The lungs are clear. The mediastinal structures and pleura appear intact. CONCLUSION: Normal chest.
[2018-10-02 08:25] LABS: Abs Immature Grans 0.01 k/cumm (0.0-0.09); Absolute Basophil Count 0.02 k/cumm (0.0-0.2); Absolute Eosinophil Count 0.34 k/cumm (0.0-0.7); Absolute Lymphocyte Count 0.99 k/cumm (1.2-3.4); Absolute Monocyte Count 0.66 k/cumm (0.11-0.7); Absolute Neutrophil Count 4.43 k/cumm (1.2-6.7); Basophils % 0.3; Eosinophils % 5.3; HCT 44.6 % (40.0-50.0); HGB 14.7 g/dL (13.5-17.5); Immature Grans % 0.2; Lymphocytes % 15.3; Mean Corpuscular Hemoglobin 31.6 pg (27.0-33.0); Mean Corpuscular Volume 95.9 fL (80-95); Mean Platelet Volume 7.9 fL (8.0-11.0); Monocytes % 10.2; Neutrophils % 68.7; Platelet Count 197 x1000/uL (130-400); RBC 4.65 m/cumm (4.50-6.00); RBC Distribution Width 14.7 % (11.8-14.1); White Blood Cell Count 6.45 k/cumm (4.4-10.8)
== END 2018-10-02 08:21 ==
PROVIDERS: PCP Emergency Medicine; Visit Provider Emergency Medicine
DX: R06.09 Other forms of dyspnea (principal)
CPT/HCPCS: 36415; 71046; 85025

== ENCOUNTER 2018-10-10 00:22 | Outpatient (CLI) | payer BC, SELFPAY ==
--- NOTE | 2018-10-10 06:55 | MERGEMPI_ITS ---
*[facility]* *[facility]* [address] [place] [address] Myocardial Perfusion Imaging - SPECT Solomon protocol Date of study: 10/10/2018 *PATIENT PRESENTATION* Height: 177.8cm (70in) Blood Pressure: Weight: 86.8kg (191lb) BSA: 2.09m^2 Ordering physician: Grey Zhang Impressions: - Normal study after maximal exercise. - Low risk of cardiac events. Summary: 1. Myocardial perfusion imaging: No myocardial perfusion defects noted. 2. The calculated left ventricular ejection fraction after stress: 50%. LV global systolic function is low normal. No left ventricular regional motion abnormality. 3. Stress ECG conclusions: The stress ECG is negative. 4. Stress: The target heart rate was achieved. The heart rate response to stress is exaggerated. There is a normal resting blood pressure with an appropriate response to stress. The patient experienced no chest pain during stress. Exercise capacity is average for age. 5. Treadmill exercise testing was performed using the Solomon protocol. The patient exercised for 9 min 32 sec, to protocol stage 3, to a maximal work rate of 11mets. Exercise was terminated due to fatigue. Imaging information: gated. Image quality reduced due to diaphragmatic attenuation. Attenuation correction used. Indication: R06.09. History: REASON FOR TESTING: PATIENT TESTING TODAY FOR FURTHER RISK STRATIFICATION. PATIENT HAS HAD LIFELONG EXERTIONAL DYSPNEA SINCE HE HAD CHEST WALL RADIATION FOR LEUKEMIA IN HIS EARLY 20'S; WORSE IN RECENT MONTHS. HE REPORTS HE GETS SOB EASILY WITH EXERTION, BUT HAS NO ASSOCIATED CHEST PAIN WITH ACTIVITY. HE DENIES CHEST PAIN UPOON ARRIVAL TO TESTING TODAY. SIGNIFICANT PAST MEDICAL HISTORY: DYSPNEA ON EXERTION, GERD, MYELOID LEUKEMIA, OBSTRUCTIVE SLEEP APNEA, SMOKING STATUS: NEVER. 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 ALLERGIES: GABAPENTIN, ERYTHROMYCIN. MEDICATIONS: TRAZODONE 50 MG HS, OMEPRAZOLE 20 MG DAILY, ALEVE 220 MG PRN, MELATONIN 6 MG HS PRN, FLAXSEED OIL 2000 MG DAILY, MULTIVITAMIN DAILY, ALBUTEROL IH PRN, SYMBICORT IH DAILY. Imaging Technique: Protocol: Solomon protocol. Acquisition: Gated SPECT; 1 day - rest/stress. The patient was imaged in the supine position. Attenuation correction used. Isotope administration: - Rest. Tc[99m]-sestamibi. Dose: 10.1mCi. Injection time: 10:00 AM. Injection to stress time: 00:45. - Stress. Tc[99m]-sestamibi. Dose: 32.1mCi. Injection time: 11:30 AM. 1-2 min before end of exercise Baseline ECG: SINUS BRADYCARDIA. HR 57 BPM. Sinus bradycardia with a nonspecific intraventricular conduction defect. Stress protocol: + +---+ + + !Stage !HR !BP (mmHg) !Comments ! + +---+ + + !Baseline supine !57 !142/78 (99) ! ! + +---+ + + !Baseline standing !69 !134/82 (99) ! ! + +---+ + + !Stage I; 1.7mph, !148! ! ! !10degrees; 3 min ! ! ! ! + +---+ + + !Stage II; 2.5mph, !148!182/94 (123)! ! !12degrees; 3 min ! ! ! ! + +---+ + + !Stage III; 3.4mph, !---! !Unable to obtain blood ! !14degrees; 3 min ! ! !pressure due to noise and ! ! ! ! !movement. ! + +---+ + + !Peak stress !174! ! ! + +---+ + + !Recovery; 1 min !150!158/80 (106)! ! + +---+ + + !Recovery; 3 min !103!174/76 (109)! ! + +---+ + + !Recovery; 6 min !90 !130/78 (95) ! ! + +---+ + + !Recovery; 9 min !86 !128/72 (91) ! ! + +---+ + + * Stress results: STRESS TEST ENDED IN 9 MINUTES 32 SECONDS DUE TO FATIGUE. NORMAL HEART RATE AND BLOOD PRESSURE DURING EXERCISE. NOTE UNABLE TO OBTAIN BLOOD PRESSURE FOR STAGE 3 OF STRESS TEST DUE TO MOVEMENT AND NOISE. SYSTOLIC BLOOD PRESSURE DROPPED 24 POINTS AT 58 SECONDS RECOVERY. SYSTOLIC BLOOD PRESSURE INCREASED 16 POINTS AT 2 MINUTES 57 SECONDS RECOVERY, THEN NORMAL RESPONSE TO BLOOD PRESSRUE FOR THE REMAINDER OF THE TEST. MAX HEART RATE: 174 110 % OF TARGET HEART RATE ACHIEVED. MET'S: 11.02 RARE PVC'S. NO ANGINA. NO SIGNIFICANT ST SEGMENT CHANGES. AVERAGE FUNCTIONAL CAPACITY. Maximal heart rate during stress was 174bpm (111% of maximal predicted heart rate). The maximal predicted heart rate was 157bpm. The target heart rate was achieved. The heart rate response to stress is exaggerated. There is a normal resting blood pressure with an appropriate response to stress. The rate-pressure product for the peak heart rate and blood pressure was 64694nc Hg/min. The patient experienced no chest pain during stress. Exercise capacity is average for age. Stress ECG: The stress ECG is negative. Marte treadmill score: 10. This score predicts a low risk of cardiac events. Myocardial perfusion: Imaging information: gated. Image quality reduced due to diaphragmatic attenuation. Left ventricular size is normal. No myocardial perfusion defects noted. Ventricular Function (Wall Motion): The calculated left ventricular ejection fraction after stress: 50%. LV global systolic function is low normal. No left ventricular regional motion abnormality. Study data: Miah Allen MD supervised and was readily available during the procedure. This study was interpreted by [facility]. Study status: Routine. Consent: The risks, benefits, and alternatives to the procedure were explained to the patient and informed consent was obtained. Procedure: Initial setup. A baseline ECG was recorded. Surface ECG leads and manual cuff blood pressure measurements were monitored. Heart sounds: Normal. Lung sounds: Abnormal. Treadmill exercise testing was performed using the Solomon protocol. The patient exercised for 9 min 32 sec, to protocol stage 3, to a maximal work rate of 11mets. Exercise was terminated due to fatigue. Study completion: All catheters inserted during the procedure were removed. The patient tolerated the procedure well and was discharged from the lab. Discharge: The patient left the laboratory in stable condition. Birthdate: Patient birthdate: 1955. Sex: Gender: male. Study date: Study date: 10/10/2018. Study time: 00:01 AM. Signature Documentation: - The imaging portion of this study was interpreted by [employer] Miah Allen MD. - The Stress ECG portion of this study was interpreted by Miah Allen MD. Electronically signed by Miah Allen 10/10/2018 14:13
== END 2018-10-10 00:42 ==
PROVIDERS: PCP Emergency Medicine; Visit Provider Emergency Medicine
DX: R06.09 Other forms of dyspnea (principal); R06.02 Shortness of breath; Z92.3 Personal history of irradiation; Z85.79 Personal history of other malignant neoplasms of lymphoid, hematopoietic and related tissues
CPT/HCPCS: 78452; 93017

== ENCOUNTER 2019-04-30 01:01 | Outpatient (CLI) | payer BC, SELFPAY ==
--- NOTE | 2019-04-30 08:35 | DI.MRI_ITS ---
EXAM: MR UPPER JOINT LT WO CLINICAL HISTORY: LEFT SHOULDER PAIN, M75.32, CALCIFIC TENDINITIS. TECHNIQUE: Multiplanar multisequence MRI was performed. COMPARISON: XR shoulder LT complete 2+V from 08/27/2018 FINDINGS: There is a simple-appearing lipoma seen within the posterior deltoid muscle measuring 5 x 3.8 x 7 cm. There are mild degenerative changes of the AC joint. There are calcifications seen in the distal nava praspinatus tendon. There is some thickening of the posterior aspect of the supraspinatus tendon and some increased signal suspicious for a partial tear versus tendinitis. There is no supraspinatus mu scle atrophy. There is some atrophy of the infraspinatus muscle. There is a small amount of high si gnal within the distal infraspinatus tendon. The subscapularis, biceps and teres minor tendons appea r intact. There is no joint effusion. IMPRESSION: Calcific tendinosis of the supraspinatus. Partial tear versus tendinitis. Atrophy of the infraspin atus muscle and mild infraspinatus tendinitis.
== END 2019-04-30 01:21 ==
PROVIDERS: PCP Emergency Medicine; Visit Provider Physician Assistant
DX: M25.512 Pain in left shoulder (principal); M75.32 Calcific tendinitis of left shoulder; M75.82 Other shoulder lesions, left shoulder; M62.522 Muscle wasting and atrophy, not elsewhere classified, left upper arm
CPT/HCPCS: 73221

== ENCOUNTER 2019-07-04 11:00 | Outpatient (CLI) | payer BC, SELFPAY ==
--- NOTE | 2019-07-04 10:45 | DI.RAD_ITS ---
EXAM: XR TIB/FIB LT CLINICAL HISTORY: PAIN TECHNIQUE: 2D digital imaging was performed. COMPARISON: No exams were available for comparison FINDINGS: An intramedullary jackie is seen through the tibia. There is no old healed mid tibial fracture and an o ld healed mid fibular fracture. There is no evidence of an acute fracture. Soft tissue calcificatio ns are incidentally noted. There are mild degenerative changes at the knee and ankle. IMPRESSION: Intramedullary jackie in the tibia. No acute abnormality.
== END 2019-07-04 11:20 ==
PROVIDERS: PCP Emergency Medicine; Visit Provider Student in an Organized Health Care Education/Training Program
DX: M79.662 Pain in left lower leg (principal); M17.12 Unilateral primary osteoarthritis, left knee; M19.072 Primary osteoarthritis, left ankle and foot; Z87.81 Personal history of (healed) traumatic fracture
CPT/HCPCS: 73590

== ENCOUNTER 2019-10-11 09:10 | Outpatient (CLI) | payer BC, SELFPAY ==
--- NOTE | 2019-10-11 11:36 | DI.RAD_ITS ---
EXAM: XR LUMBAR SPINE COMPLETE CLINICAL HISTORY: left hip and lumbar pain, M25.552. TECHNIQUE: 2D digital imaging was performed. COMPARISON: No exams were available for comparison FINDINGS: There are 5 lumbar type vertebral bodies. There is a mild right convex curvature of the lumbar spine . 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 Disc space narrowing is seen at L 1-L2 and L3-L4. Endplate osteophytes are seen throughout the lumbar spine. Degenerative facet arthr opathy is seen at multiple levels particularly at L4-5 and L5-S1. No acute fracture or subluxation. Sacroiliac joints appear well maintained. Vacuum discs are seen at and L3-L4. IMPRESSION: Moderate degenerative changes in the lumbar spine. DATA REPOSITORY: RADIATION DOSE DELIVERED:
--- NOTE | 2019-10-11 11:36 | DI.RAD_ITS ---
EXAM: XR HIP LT COMPLETE AP PELVIS CLINICAL HISTORY: left hip pain, M25.552. TECHNIQUE: 2D digital imaging was performed. COMPARISON: No exams were available for comparison FINDINGS: There are mild degenerative changes of the left hip characterized by joint space narrowing and subcho ndral sclerosis. The bones are normally mineralized and intact. The sacroiliac joints and symphysis pubis appear unremarkable. The soft tissues are unremarkable. IMPRESSION: Mild degenerative changes of the left hip. DATA REPOSITORY: RADIATION DOSE DELIVERED:
== END 2019-10-11 09:30 ==
PROVIDERS: PCP Emergency Medicine; Visit Provider Emergency Medicine
DX: M47.816 Spondylosis without myelopathy or radiculopathy, lumbar region (principal); M48.061 Spinal stenosis, lumbar region without neurogenic claudication; M25.552 Pain in left hip
CPT/HCPCS: 72110; 73502

== ENCOUNTER 2019-11-19 00:58 | Outpatient (CLI) | payer BC, SELFPAY ==
--- NOTE | 2019-11-19 11:50 | DI.MRI_ITS ---
EXAM: MR LUMBAR SPINE WO CLINICAL HISTORY: PAIN, lumbar radiculopathy, M54.16. TECHNIQUE: Multiplanar multisequence MRI of the Lumbar spine was performed. COMPARISON: No exams were available for comparison FINDINGS: Bones: The last intervertebral disc space is designated the L5/S1 level for the numbering purpose of this examination. The vertebral body heights are well maintained. There is a right convex scoliosis . Degenerative endplate signal changes are present. Cord: The conus tip ends at the T12 level. It is of normal size and signal intensity. T12-L1: Mild disc bulge. No central spinal canal or neural foraminal stenosis. L1-2: Mild diffuse disc bulge. Mild narrowing of the central spinal canal. No significant neural fo raminal stenosis. L2-3: There is a diffuse disc bulge. There are degenerative changes of the facets. Mild narrowing o f the central spinal canal is present. Mild bilateral neural foraminal stenosis. L3-4: There is a diffuse disc bulge. There are degenerative changes of the facets. There is mild na rrowing of the central spinal canal. There is mild right and moderately severe left neural foraminal stenosis. L4-5: There is a diffuse disc bulge. There are hypertrophic changes of the facets and ligamentum fla vum. These all contribute to cause moderately severe central spinal canal stenosis. There is modera te bilateral neural foraminal stenosis. L5-S1: There is a diffuse disc bulge. There are degenerative changes of the facets right greater mena n left. Mild narrowing of the central spinal canal is present. There is marked narrowing of the rig ht neural foramen. No significant left neural foraminal stenosis is present. Soft tissues: The visualized SI joints and sacrum are well maintained. The paraspinal soft tissues ar e unremarkable. IMPRESSION: Multilevel degenerative changes resulting in central spinal canal neural foraminal stenosis as descri bed. DATA REPOSITORY:
== END 2019-11-19 01:18 ==
PROVIDERS: PCP Emergency Medicine; Visit Provider Student in an Organized Health Care Education/Training Program
DX: M51.36 Other intervertebral disc degeneration, lumbar region (principal); M48.061 Spinal stenosis, lumbar region without neurogenic claudication
CPT/HCPCS: 72148

== ENCOUNTER 2019-11-21 01:25 | Outpatient (CLI) | payer BC, SELFPAY ==
--- NOTE | 2019-11-21 14:20 | DI.RAD_ITS ---
EXAM: RF JOINT INJECTION FLUORO GUID CLINICAL HISTORY: PAIN-L HIP INJ UNDER FLUORO, LT HIP PAIN, M25.552 TECHNIQUE: 2D and realtime digital imaging was performed. CONTRAST MATERIAL: Water soluble contrast was administered. COMPARISON: No exams were available for comparison FINDINGS: Fluoroscopy was provided for Dr. Mooney during the performance of a left hip injection. Please re patience to the procedure report for complete details. Fluoro time: 6 seconds
--- NOTE | 2019-11-21 14:38 | W.PROCNOTE ---
Date of service: 11/21/19 Time of Service: 14:21 Procedure Note Date of procedure: 11/21/19 Procedure: Left Hip Injection with Fluoroscopic Guidance Surgeon/Proceduralist/Physician: Brock Mooney Procedure Diagnosis: Left Hip Osteoarthritis Procedure Indications: Sal has had persistent pain of the LEFT hip and groin. Noninvasive measures have been tried. To serve as both diagnostic and therapeutic, an injection under fluoroscopy was recommended. I had discussed the risks of the procedure and the patient elected to proceed. Procedure Description: Sal was greeted in the flouroscopy room. The correct side was identified and the consent was reviewed with the patient and signed. The patient was then placed in the supine position on the fluoroscopy table. The LEFT hip was then prepped with Chloraprep. The anterolateral injection starting point was identiifed by bony landmarks and fluoroscopy. The skin and soft tissue in the tract of the injection was anesthetized with 1% Lidocaine. A spinal needle was then inserted deep into the hip joint at the level of the lateral femoral neck under fluoroscopic guidance. A small amount of Omnipaque solution was injected to confirm intraarticular placement. Once confirmed, the hip was injected with 6cc of 0.5% Bupivicaine and 80mg of Depo-Medrol. A bandaid was placed on the injection site. The patient tolerated the procedure well and noted improvement in pre-injection pain.
[2019-11-21] MEDS: Omnipaque 300 MG/ML 10 ML BTL IJ (15:03)
[2019-11-21] MEDS: Bupivacaine 0.5% Pres-Free 10 ML VIAL IJ (15:03)
[2019-11-21] MEDS: methylPREDNISolone ACETATE 80 MG/ML VIAL IM (15:04)
== END 2019-11-21 01:45 ==
PROVIDERS: PCP Emergency Medicine; Visit Provider Student in an Organized Health Care Education/Training Program
DX: M25.552 Pain in left hip (principal); M16.12 Unilateral primary osteoarthritis, left hip
CPT/HCPCS: 77002; J1040

== ENCOUNTER 2020-03-19 00:59 | Outpatient (CLI) | payer BC, SELFPAY ==
--- NOTE | 2020-03-19 08:00 | DI.RAD_ITS ---
EXAM: RF JOINT INJECTION FLUORO GUID CLINICAL HISTORY: L HIP INJ UNDER FLUORO,OA LT HIP, LT HIP PAIN,M25.552,M16.32 TECHNIQUE: 2D and realtime digital imaging was performed. CONTRAST MATERIAL: Refer to procedure report. COMPARISON: No exams were available for comparison FINDINGS: Fluoroscopy was provided for Dr. Mooney during left hip joint injection. Please refer to the proce derrek report for complete details. Fluoro time: 7 seconds IMPRESSION:
[2020-03-19] MEDS: Omnipaque 300 MG/ML 10 ML BTL IJ (14:14)
[2020-03-19] MEDS: Bupivacaine 0.5% Pres-Free 10 ML VIAL 6 ML IV (14:16)
[2020-03-19] MEDS: methylPREDNISolone ACETATE 80 MG/ML VIAL IM (14:17)
--- NOTE | 2020-03-19 14:17 | W.PROCNOTE ---
Date of service: 03/19/20 Time of Service: 14:01 Procedure Note Date of procedure: 03/19/20 Procedure: Left Hip Injection with Fluoroscopic Guidance Surgeon/Proceduralist/Physician: Brock Mooney Procedure Diagnosis: Left Hip Osteoarthritis Procedure Indications: Sal has had persistent pain of the LEFT hip and groin. Noninvasive measures have been tried. To serve as both diagnostic and therapeutic, an injection under fluoroscopy was recommended. I had discussed the risks of the procedure and the patient elected to proceed. Procedure Description: Sal was greeted in the flouroscopy room. The correct side was identified and the consent was reviewed with the patient and signed. The patient was then placed in the supine position on the fluoroscopy table. The LEFT hip was then prepped with Chloraprep. The anterolateral injection starting point was identiifed by bony landmarks and fluoroscopy. The skin and soft tissue in the tract of the injection was anesthetized with 1% Lidocaine. A spinal needle was then inserted deep into the hip joint at the level of the lateral femoral neck under fluoroscopic guidance. A small amount of Omnipaque solution was injected to confirm intraarticular placement. Once confirmed, the hip was injected with 6cc of 0.5% Bupivicaine and 80mg of Depo-Medrol. A bandaid was placed on the injection site. The patient tolerated the procedure well and noted improvement in pre-injection pain.
== END 2020-03-19 01:19 ==
PROVIDERS: PCP Family Medicine; Visit Provider Student in an Organized Health Care Education/Training Program
DX: M16.32 Unilateral osteoarthritis resulting from hip dysplasia, left hip (principal); M25.552 Pain in left hip
CPT/HCPCS: 20610; 77002; J1040

== ENCOUNTER 2020-04-20 03:57 | Outpatient (CLI) | payer BC, SELFPAY ==
[2020-04-20 10:24] LABS: HCT 45.5 % (40.0-50.0); HGB 14.8 g/dL (13.5-17.5); MCH 31.5 pg (27.0-33.0); MCHC 32.5 % (32.0-36.0); MCV 96.8 fL (80-95); Platelet Count 226 10^3/uL (130-400); RDW 13.7 % (11.8-14.1); WBC 5.23 10^3/uL (4.4-10.8)
[2020-04-20 11:34] LABS: ALT 42 U/L (16-63); AST 34 U/L (15-37); Albumin 4.5 g/dL (3.4-5.0); Alkaline Phosphatase 70 U/L (46-116); Anion Gap 8.5 mmol/L (3-11); BUN 15 mg/dL (7-18); Bilirubin, Total 0.4 mg/dL (0.2-1.0); CO2 29.5 mmol/L (21.0-32.0); CREATININE 0.9 mg/dL (0.70-1.30); Calcium 9.9 mg/dL (8.5-10.1); Calculated LDL 142 mg/dL (<100); Chloride 103 mmol/L (98-107); Cholesterol 236 mg/dL (<200); Glucose 112 mg/dL (74-106); HDL Cholesterol 57 mg/dL (40-60); Potassium 4.8 mmol/L (3.5-5.1); Sodium 141 mmol/L (136-145); TSH (W/Ref FT4) 2.19 uIU/mL (0.36-3.74); Total Protein 7.7 g/dL (6.4-8.2); Triglyceride 189 mg/dL (<150); Vitamin B12 1056 pg/mL (193-986)
[2020-04-20 18:19] LABS: PSA, Screening 1.6 ng/mL (0.0-4.5)
[2020-04-21 12:39] LABS: COVID-19 RT-PCR UVMMC Result Negative (Negative)
== END 2020-04-20 04:17 ==
PROVIDERS: Family Medicine; PCP Family Medicine; Visit Provider Family Medicine
DX: Z00.00 Encounter for general adult medical examination without abnormal findings (principal); R06.09 Other forms of dyspnea; K21.9 Gastro-esophageal reflux disease without esophagitis; Z12.5 Encounter for screening for malignant neoplasm of prostate
CPT/HCPCS: 36415; 80053; 80061; 84153; 85027; U0003; 82607; 84443

== ENCOUNTER 2020-04-27 03:38 | Outpatient (CLI) | payer BC, SELFPAY ==
[2020-04-27] MEDS: Albuterol HFA 18 GM 200 PUFF INH IH (09:38)
[2020-04-27] MEDS: Inhaler, Assist Device 1 EACH MC (09:39)
--- NOTE | 2020-04-29 14:51 | W.PFT ---
Date of service: 04/27/20 Time of Service: 08:10 Pulmonary Function Test Result Interpretation Spirometry: Mild obstructive airways disease with no bronchodilator response Lung Volumes: No evidence of restriction Diffusion Capacity: Mildly reduced even when corrected to alveolar volume Airway Pressure: Normal Impression Mild obstructive airways disease with no bronchodilator response, this is associated with mild diffusion defect Clinical Correlation therefore is recommended.
== END 2020-04-27 03:39 | disposition home or self-care (01) ==
LOC: RT 03:38
PROVIDERS: PCP Family Medicine; Visit Provider Family Medicine
DX: R06.09 Other forms of dyspnea (principal)
CPT/HCPCS: 94060; 94726; 94729

== ENCOUNTER 2020-06-02 14:14 | Outpatient (CLI) | payer BC, SELFPAY ==
--- NOTE | 2020-06-02 13:00 | DI.RAD_ITS ---
EXAM: XR PELVIS AP CLINICAL HISTORY: preop TECHNIQUE: COMPARISON: CR XR HIP LT COMPLETE AP PELVIS from 10/11/2019 FINDINGS: AP view of the pelvis was obtained. There is severe loss of the cartilaginous joint space of the lef t hip superiorly with marked subchondral sclerosis the acetabulum and femoral head superiorly. Moder ate acetabular osteophyte formation noted. There are moderate degenerative changes of the right hip with moderate narrowing of the cartilaginous joint space of the right hip superiorly. IMPRESSION: Severe DJD left hip, moderate DJD right hip. RADIATION DOSE DELIVERED: Total DLP
== END 2020-06-02 14:15 | disposition home or self-care (01) ==
LOC: DIORS 14:15
PROVIDERS: PCP Family Medicine; Referring Provider Family Medicine; Visit Provider Physician Assistant Surgical
DX: M16.0 Bilateral primary osteoarthritis of hip (principal)
CPT/HCPCS: 72170

== ENCOUNTER 2020-06-05 02:49 | Outpatient (CLI) | payer BC, SELFPAY ==
[2020-06-05 10:58] LABS: HCT 41.6 % (40.0-50.0); HGB 13.3 g/dL (13.5-17.5); MCH 31.6 pg (27.0-33.0); MCV 98.8 fL (80-95); Platelet Count 205 10^3/uL (130-400); RBC 4.21 10^6/uL (4.36-5.78); RDW 13.9 % (11.8-14.1); RDW-SD 50.4 fL; WBC 5.71 10^3/uL (4.4-10.8)
[2020-06-05 12:01] LABS: Anion Gap 7.7 mmol/L (3-11); BUN 21 mg/dL (7-18); CO2 31.3 mmol/L (21.0-32.0); CREATININE 0.9 mg/dL (0.70-1.30); Calcium 9.6 mg/dL (8.5-10.1); Chloride 105 mmol/L (98-107); Glucose 99 mg/dL (74-106); Potassium 4.4 mmol/L (3.5-5.1); Sodium 144 mmol/L (136-145)
[2020-06-05 12:02] LABS: Source Nasal/Nares
[2020-06-05 17:06] LABS: COVID-19 PCR Negative (Negative)
== END 2020-06-05 02:50 | disposition home or self-care (01) ==
LOC: LBO 02:49
PROVIDERS: PCP Family Medicine; Visit Provider Student in an Organized Health Care Education/Training Program
DX: M25.552 Pain in left hip (principal); M16.32 Unilateral osteoarthritis resulting from hip dysplasia, left hip; Z20.822 Contact with and (suspected) exposure to COVID-19; Z01.818 Encounter for other preprocedural examination; Z01.812 Encounter for preprocedural laboratory examination
CPT/HCPCS: 36415; 80048; 85027; 86850; 86900; 86901; 87635; U0003

== ENCOUNTER 2020-06-10 06:18 | Day surgery (SDC) | payer BC, SELFPAY ==
[2020-06-10] VITALS (10 sets, daily range): BP systolic 119–168; BP diastolic 73–91; PULSE 60–72; RESP 13–23; TEMP 36.1–36.5; O2SAT 96–100
[2020-06-10] MEDS: Celecoxib 200 MG CAP 400 MG PO (06:49)
[2020-06-10] MEDS: Acetaminophen 500 MG TAB 1000 MG PO ×2 (06:49→14:48)
[2020-06-10] MEDS: Lactated Ringers 1,000 ML 80 ML IV (07:15)
--- NOTE | 2020-06-10 07:19 | DSE_ITS ---
DS: Diagnosis Discharge Diagnosis (1) Osteoarthritis resulting from left hip dysplasia: Status: Acute Discharge Plan Disposition Patient Disposition: HOME Condition: Good Discharge Details Reason For Visit: Left Hip DJD Attending Provider: Brock Mooney Primary Care Provider: Anabel Galvin Home Meds and New Rx's Prescriptions: New celecoxib 200 mg capsule 200 mg PO BID PRN (Reason: pain) Qty: 60 RF: 1 aspirin 81 mg tablet,delayed release (DR/EC) 81 mg PO BID Qty: 60 RF: 0 docusate sodium [Colace] 100 mg capsule 100 mg PO BID PRNQty: 10 RF: 0 oxycodone 5 mg tablet 5 mg PO Q4H Qty: 12 RF: 0 Continued CENTRUM SILVER TABLET 1 EACH tablet 1 ea PO DAILY RF: 0 flaxseed oil 1,000 mg capsule 2,000 mg PO DAILY RF: 0 melatonin 3 mg tablet 6 mg PO HS RF: 0 albuterol sulfate [Ventolin HFA] 90 mcg/actuation HFA aerosol inhaler 2 puff IH QID PRN (Reason: shortness of breath or wheezing) Qty: 18 RF: 6 budesonide-formoterol [Symbicort] 80-4.5 mcg/actuation HFA aerosol inhaler 2 puff IH DAILY Qty: 10.2 RF: 6 trazodone 50 mg tablet 50 mg PO HS Qty: 90 RF: 3 omeprazole 20 mg capsule,delayed release(DR/EC) 20 mg PO DAILY Qty: 90 RF: 3 acetaminophen 650 mg Tablet Extended Release 650 mg PO QID RF: 0 Discontinued naproxen sodium [Aleve] 220 MG tablet 220 mg PO BID PRN PRNRF: 0 Discharge Instructions Additional Instructions: Total Hip Discharge Instructions Activity: The most important activity is to walk. You should try to take short walks a few times a day. You have no restrictions on movement or positioning, but do not try to force what you do. You will find some stiffness and weakness with hip flexion (lifting your knee). Do not try to strengthen this too early, continue to practice walking and stairs and this will come. - Outpatient physical therapy can be helpful to help return you to a normal gait and improve your flexibility and strength. This can start around 2 weeks. For some patients, it?s not necessary. Usually this is determined at the time of discharge or at the first post-operative visit. - You should wear the DANISHA hose on both legs for 2 weeks. Dressing: Keep the surgical dressing in place for at least one week, but if it is intact it may stay in place until your follow-up. After the first week it may be removed and replace with light gauze and tape or nothing. It may get wet after 3 days but avoid soaking the dressing. If it gets wet, just lightly pat dry. Many people prefer to cover with SaranWrap or ClingWrap to keep it from getting soaked in the shower. It is important to always keep some gauze between skin folds after the initial dressing has been removed, especially when you are sitting. Medications: - You should take Tylenol and an anti-inflammatory Celebrex as your primary pain control medications. If the Celebrex is too expensive or not covered, please call the office for another alternative (Advil/Ibuprofen or Naproxen/Aleve). - You have been prescribed a stronger pain medication Oxycodone for breakthrough pain, take as needed as prescribed. - You will continue your stomach acid reduction agent Omeprazole to help reduce stomach acid and reflux. - You will be taking [Aspirin 81mg twice a day] for DVT prevention unless instructed otherwise. - If you have constipation you should take Colace or Miralax (both [id number]). It takes most people 3-4 days to have a bowel movement. Follow-up: 2 weeks If you have any acute concerns or questions, please do not hesitate to contact the office at [phone]. You may contact Dr. Mooney with any questions after hours through the hospital at [phone] or on his cell phone at [phone]. Referrals: Brock Mooney MD [ [facility] STAFF PHYSICIAN] - Equipment/Supplies: Walker Activity:: Activity as Tolerated Shower/Bathe:: 72 hours Diet:: As Tolerated Discharge Orders Discharge Orders: Discharge Order (Routine); Ordered 06/10/20 Ordered By: Brock Mooney DS: Summary Time Spent with Patient providing and/or coordinating discharge services: Less than 30 minutes Status at Discharge Functional status at discharge: uses cane/walker Overall status at discharge: patient is progressing back to baseline Mental Status: mental status grossly normal Speech and Movement: speech and movement normal Mood: congruent mood Affect: normal affect Exam Psych Mental Status: mental status grossly normal Speech and Movement: speech and movement normal Mood: congruent mood Affect: normal affect DS: Data Vitals/I&O Vitals and I&O: Vital Signs Temperature 36.5 C 06/10/20 06:59 Pulse 69 06/10/20 06:59 Pulse Rhythm Regular 06/10/20 06:59 Respiratory Rate 16 06/10/20 06:59 Respiratory Depth Normal 06/10/20 06:59 Blood Pressure 135/85 06/10/20 06:59 Pulse Oximetry 96 06/10/20 06:59 Oxygen Delivery Method Room Air 06/10/20 06:59 Oxygen Flow Rate 0 06/10/20 06:59 Pain Level 1 06/10/20 06:59 Intake & Output 06/09/20 06/09/20 06/10/20 11:59 23:59 11:59 Weight 88.6 kg [facility] Medical History BCC (basal cell carcinoma), face (09/06/17) 08/23/17 DR. ALEJANDRA ARMSTRONG; MANDIBLE Calcific tendinitis of left shoulder (05/03/17) Injected: 08/27/2018; 05/03/2017 Cataract of child (09/26/17) son early adulthood. 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 Father No problems noted. Sister No problems noted. Brother Asthma Brother No problems noted. Maternal Grandfather , AGE 99 No problems noted. Paternal Grandfather , AGE 75 Heart disease Hyperlipidemia Maternal Grandmother , AGE 75 Stroke Paternal Grandmother , AGE 99 No problems noted. Social History Smoking/Tobacco Use Status: Never Smoking risk assessment performed?: Yes Alcohol Intake: never Drug use: Never Substance use type: does not use Details: alcohol: last august Caregiver/Support person: No Household members: spouse Housing: house current occupation: SALES Pets and animals: No Sexually active: Yes Do you think of yourself as: straight/heterosexual Current gender identity: male What is your relationship status?: refused to answer How often do you talk on the phone with friends or family?: decline to answer How often do you get together with friends or relatives?: decline to answer How often do you attend restorationist or sabianism services?: decline to answer Do you belong to any clubs or organized social groups?: decline to answer Panel score (0-1 are the most socially isolated patients): 0 What type of physical activity do you participate in: walking Duration: 30-45 minutes/day Frequency: daily Tali/Anabaptist: Catholic Special tali needs: No Do you feel safe at home: Yes Do you feel safe in your relationship?: Yes
[2020-06-10] MEDS: ceFAZolin 2 GM/50 ML BAG IVPB (08:04)
[2020-06-10] MEDS: Ketorolac 30 MG/ML VIAL (09:19)
[2020-06-10] MEDS: Bupivacaine 0.25% Pres-Free 30 ML VIAL (09:19)
--- NOTE | 2020-06-10 09:33 | DI.RAD_ITS ---
EXAM: XR HIP LT IN OR CLINICAL HISTORY: left hip DJD. TECHNIQUE: Fluoroscopy was provided intraoperatively during left hip arthroplasty. CONTRAST MATERIAL: None COMPARISON: X-rays 06/02/2020 FINDINGS: Images reveal satisfactory position of the components of the newly placed prosthesis in the left hip. No obvious fracture IMPRESSION: As above. Total fluoroscopy time 47.8 seconds; cumulative dose 6.72mGy
--- NOTE | 2020-06-10 09:55 | ROE_ITS ---
Date of service: 06/10/20 Time of Service: 09:55 Operative Note Operative Note DATE OF PROCEDURE: 06/10/20 PRE-OP DIAGNOSIS: Left Hip Osteoarthritis POST-OP DIAGNOSIS: same PROCEDURE: Left Anterior Total Hip Arthroplasty SURGEON: Brock Mooney PAWN BROKER: Justine Molina Refer to Anesthesia Record ESTIMATED BLOOD LOSS: 300 PATHOLOGY: none sent COMPLICATIONS: None Patient was transported to: PACU Patient's condition: stable Implants: 1. Depuy [place] Acetabular Component, 54mm 2. Depuy Acetabular Liner, [id number] 3. Depuy Corail Coxa Vara Collared Femoral Stem, Size 10 4. Depuy Altrx Ceramic Femoral Head, Size 36+5mm Indications: I have seen Sal in clinic for symptoms of hip arthritis, confirmed with radiographic findings. Sal has exhausted nonoperative methods and was having significant limitations in daily function and desired better function and less pain. I discussed the technical details of a hip replacement. I explained the risks of the procedure to include, but not limited to, bleeding, infection, pain, stiffness, fracture, damage to nerves and vessels, damage to muscles and tendons, loosening, instability, leg length inequality, need for repeat procedure, blood clot and cardiopulmonary demise. Despite these risks, Sal elected to proceed. Findings: There was significant signs of arthritis throughout the hip. Large osteophytes around the femoral neck and acetabulum. There was also a large paralabral cyst over the anterior acetabulum. Procedure Description: Sal was greeted in the preoperative holding area where the correct side was identified and marked. The consent was reviewed with the patient and signed. The history and physical was updated. All questions were answered. Sal was taken back to the operating room. A spinal anesthestic was attempted but was unsuccessful so he was converted to a general anesthetic. The feet were wrapped with cast padding and Coban and then placed into the boot liners and then into the boots. Care was taken to protect the skin and make sure the heels were fully down and the boots were stable. The patient was then positioned onto the HANA table. Both legs were held in a neutral position. SCDs were appl ied. The patient was then slid down onto a peroneal post. Prophylactic antibiotics in the form of Cefazolin were administered. 1g of Tranxemic Acid was given intravenously within 30 minutes of incision. The left leg was then prepped with Chloraprep and draped in a standard fashion. A second prep with Chloraprep was performed prior to placement of a shower-curtain type drape with Iodine impregnated skin protection. A timeout to confirm correct identity, side and site, procedure, allergies, anesthesia, and medical concerns was performed. An obliquely oriented incision was made starting lateral to the ASIS and running distal over the Tensor Fascia Rosalia (TFL) muscle belly toward the fibular head, approximately 10cm. The skin and soft tissue was dissected sharply, through Marleni?s fascia, and to the fascia of the TFL. With the fascia and superior border of the IT band identified, the fascia was incised with a new knife just above any perforators from the IT band. The TFL muscle belly was bluntly dissected away from the fascia and moved laterally. The fat between TFL and rectus was identified to ensure the dissection was not within the TFL. Blunt dissection created space between abductors and the capsule and retractor was placed over the lateral femoral neck. The fibers of the rectus femoris tendon were identified and these were freed from the anterior capsule. A second cobra retractor was placed around the medial femoral neck. The TFL was further retracted laterally to show the deep fascia. Careful dissection through this layer identified three main crossing vessels of the lateral femoral circumflex. These were cauterized in multiple locations and then cut without any noticeable bleeding. The TFL was further released bluntly from the deep fascia to expose a nterior hip capsule and fat The Guerrero orthopaedic retractor was then placed beneath the TFL and against sartorius and medial soft tissues to protect and retract the soft tissues. A T-capsulotomy was then performed starting at the superior lateral acetabulum and moving distally to the intertrochanteric ridge. These capsular flaps were tagged with a No. 1 Ethibond and elevated from within. The capsular flaps were released to the shoulder of the lateral neck and to the lesser trochanter to give excellent visualization of the proximal femur. A neck osteotomy was performed using an oscillating saw based on preoperative templates. This cut started in the shoulder and of the lateral neck and exited medially. The saw was at all times directed medially to avoid injury to the greater trochanter. Gross traction was applied to the leg and the osteotomy opened. The femoral head was removed with a corkscrew, making sure to protect the TFL on its exit. Traction was released after head removal. This was measured on the back table to determine the starting reamer size. Portions of the rectus obscuring visualization were minimally elevated off the superior acetabulum. An anterior retractor was placed over the anterior wall between capsule and labrum and attached to the Gripper retraction system. At this point, there was cystic fluid seen exiting between the labrum and capsule. This was expressed from the anterior hip. Then, the femur was rotated to 90 degrees and medial capsule was fully released until the lesser trochanter was palpable and visible; the femur was returned to 30 degrees. A posterior retractor was placed similarly between capsule and labrum. This provided excellent visualization. The contents of the cotyloid fossa were removed with electrocautery and the labrum was removed with a knife. There was a notable floor osteophyte. There was significant chondromalacia of the superior acetabulum. Acetabular reaming began with a 50mm reamer. This first reaming was directed anterior to posterior and medial to get down to the true floor. This was inspected and reamed until the true floor was reached. The anterior retractor was then released and entry and exit was provided by traction on the capsular flaps. I then reamed sequentially up to a 54mm reamer where good fit was obtained. The larger reamers were oriented based on anatomical reference of the anterior and lateral fajardo to ensure proper abduction and anteversion. Positioning and size was confirmed with the fluoroscopy. A 54mm Depuy [place] acetabular component was selected. The acetabulum was reamed around the periphery with the selected acetabular size to prevent a rim fit. The deep tissues were irrigated. The acetabular component was then impacted in a position of about 40-45 degrees of abduction and 15-20 degrees of anteversion, using the patient?s anatomy as the ultimate landmark. Fluoroscopy was used to confirm this. There was excellent senior android software engineer of the acetabular component and the inserting handle was removed. The acetabular liner, Depuy [id number] polyethylene liner, was inserted and lined up with the tines of the acetabular component. There was no soft tissue interposition. The liner was then impacted into position and confirmed to be well-seated. A portion of the carlos-articular cocktail was then injected around the acetabulum into the capsule and periosteum. This cocktail consisted of 50cc of 0.25% Bupivicaine and 20cc of Exparel and 30mg of Ketorolac. The leg was rotated to 120 degrees. Any remaining medial capsule was released until the lesser trochanter was easily palpable. A retractor was placed medially. The lateral capsule was further released into the shoulder to allow access to the greater trochanter. A Mejia retractor was placed over the greater trochanter which allowed the trochanter to flip in front of the capsule for excellent exposure. The leg was brought down into maximal extension and 20 degrees of adduction while ensuring there was no impingement on the acetabulum. Any remnant capsule within the trochanter was released. Piriformis and obturator externis were identified and protected. There was excellent access to the proximal femur. The lateral neck remnant was removed with a rongeur. A blunt canal probe was used to identify the canal and trajectory for later broaching. A box osteotome initiated the broach course. A small curved rasp and a curved curette were used to work laterally. Broaching then began with a size 8 Corail broach. This was inserted manually around the trochanter and into the canal before mallet blows. The broach was seated to a few millimeters below the cut level based on the neck cut and the preoperative template. Sequential broaching was continued with the [employer]pect[employer] pneumatic broaching device until a tight fit was obtained with good rotational control of the femur. However, this only got to a size 9 stem. I removed the stem and worked laterally with rongeur and curette to lateralize the stem. I then used the broach handle to continue broaching but was only able to get up to a size 10 with excellent rotational control. Then, a trial coxa vara neck was inserted along with a +1.5 trial head. The leg was brought out of extension and adduction and then reduced with traction and internal rotation. The leg was stable anteriorly in a position of 30 degrees of extension and 90 degrees of external rotation. Fluoroscopy was used to ensure there was no fracture and the stem was seated well. Leg lengths were checked with an AP pelvis and pelvic reference points. Phorm navigation system was used to confirm appropriate positioning and leg length and offset. Once content with the desired offset and leg lengths, the leg was brought back into extension, external rotation and adduction. The periosteum and surrounding tissue was injected with remaining portion of the carlos-articular cocktail. The proximal femur was irrigated as well as the deep tissues. The Depuy Corail Coxa Vara collared stem, size 10, was then manually inserted into the proximal femur making sure to control rotation. It was then malleted into position with light blows, giving breaks to allow bone expansion and decrease risk of fracture. The selected Depuy Altrx Ceramic Head, size 36+5mm, was then placed onto the clean and dry trunnion and secured with impaction onto the tapered fit. The leg was brought back out of extension and adduction and reduced with traction and internal rotation. Stability was confirmed with no shuck at 90 degrees of external rotation and 30 degrees of extension. No impingement through range of motion arc. Final x-ray images were obtained with fluoroscopy to confirm adequate positioning and no intraoperative fracture. The deep tissues were thoroughly irrigated with Irrisept chlorhexadine solution. The capsule was then reapproximated with the previously placed Ethibond sutures. The TFL fascia was finally closed with a No. 2 Stratafix, barbed suture. Deep tissues were then reapproximated with 0 Vicryl and a running 2-0 Vicryl. The skin was closed with a running 4-0 Monocryl in a subcuticular fashion. This was reinforced with skin glue. A Mepilex silver dressing was applied. At the end of the case, all counts were correct. Sal was transferred to the hospital bed without difficulty and suffering no apparent complication. Sal has a good prognosis. Physical therapy will start today and without restrictions, weight-bearing as tolerated. Aspirin 81mg BID will be used for DVT prophylaxis.
[2020-06-10] MEDS: HYDROmorphone 2 MG/ML VIAL IVP ×2 (10:29→10:40)
[2020-06-10] MEDS: Normal Saline Flush 10 ML SYR IV (10:30)
[2020-06-10] MEDS: oxyCODONE 5 MG TAB PO (11:54)
--- NOTE | 2020-06-10 13:11 | IN_ITS ---
Date of service: 06/10/20 Time of Service: 13:11 PT Notes Visit Reasons: Left Hip DJD Physical Therapy Day Surgery Initial Evaluation Date: 06/10/2020 Referring Doctor: Brock Mooney MD PT Orders: PT CONSULT: Status post Ortho surgery Precautions: WBAT on left LE with AD. 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 PMHX: Medical History BCC (basal cell carcinoma), face (09/06/17) 08/23/17 DR. ALEJANDRA ARMSTRONG; MANDIBLE Calcific tendinitis of left shoulder (05/03/17) Injected: 08/27/2018; 05/03/2017 Cataract of child (09/26/17) son early adulthood. 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 He states that bedroom is on the third floor but that he does not need to go up if he does not need to as he has placed a bed on the main floor of the house. Retired cattle clinical informatics specialist. Equipment Owned/DME: Bilateral axillary crutches, SPC Subjective: Reports 3/10 pain in L hip at rest and 1-2/10 with weight bearing. States that moving about helped take away the stiffness. Voices L hip and gluteal area being numb. Hopes that he could use an imaginary walker. Agreeable to trying out bilateral axillary crutches if he is able to tolerate. Objective: General Observation: Supine in stretcher. Changed into hospital gown, robe set, and IV in R capped by Nurse Natalya. FWW and gait belt all made ready inside patient's room as well by Nurse Hoang. Mepilex Ag over surgical incision. L thigh and leg smaller limb circumference than R. Mental Status: Alert and oriented x4 Pain: 3/10 pain at rest and 1?2/10 with ambulation ROM: Right Lower Extremity: Hip flexion WFL. Hip abduction WFL. Knee flexion WFL. Ankle dorsiflexion WFL. Ankle plantarflexion WFL. Left Lower Extremity: Hip flexion WFL. Hip abduction WFL. Knee flexion WFL. Ankle dorsiflexion WFL. Ankle plantarflexion WFL. Strength: Right Lower Extremity: Hip flexors 5/5. Hip abductors 5/5. Knee flexors 5/5. Knee extensors 5/5. Ankle dorsiflexors 5/5. Ankle plantarflexors 5/5. Left Lower Extremity:Hip flexors 4/5. Hip abductors 4/5. Knee flexors 5/5. Knee extensors 4/5. Ankle dorsiflexors 5/5. Ankle plantarflexors 5/5. Sensation: Numb in L hip and L gluteal area otherwise intact as to pain in B LE Bed Mobility/Transfers: Supine to sit independent Sit to stand standby assist Stand to sit standby assist Bed to chair standby assist Gait: Guided patient through level surface ambulation of 200 feet using front wheeled walker with step through gait pattern requiring only standby assist of PT and wheelchair follow of nurse Hoang for safety. No report of increased pain throughout. Sal also demonstrated good handling and coordination with level surface ambulation of 50 feet using bilateral axillary crutches with standby assist of PT and wheelchair follow of nurse Hoang. Stairs: Instructed patient on safe strategies for negotiating ten 6-inch steps using bilateral axillary crutches requiring contact-guard assist of PT and standby assist of nurses Natalya and Sri. No report of increased pain throughout. Balance: Static Sitting: Normal Dynamic Sitting: Normal Static Standing: Fair Dynamic Standing: Fair Special Tests: Mobility Limitations Standardized Measure [facility] AM-PAC 6 clicks Basic Mobility Inpatient Short Form: Raw Score: 24 CMS Score: 0% deficit Informed Consent/Education: Patient instructed in purpose of PT consult. Packet containing SAQIB exercise protocol has been given to patient. Education and training on initial set of exercises that can be done at home have been completed with patient. Assessment: Sal requires the use of front wheeled walker for all mobility ADL performance to maximize independence and reduce fall risk at home. Alternatively he was advised that he may use bilateral axillary crutches when his pain level allows it. Patient presents with clinical signs and symptoms consistent with current/admitting diagnoses that have resulted to mobility limitations, gait instability, generalized weakness, and impairment of motor control as demonstrated by the following impairment level findings: 1. Decreased strength to left hip major muscle groups 2. Impaired standing balance Impairments are contributing to the following functional limitations: 1. Inability to safely ambulate without assistive device 2. Increase completion time for mobility ADL performance Patient is assessed as a 17470 moderate complexity based on the following: History: 64-year-old male with impairment level findings, functional limitations, and past medical history as indicated above Examination: Demonstrable impairment in strength, balance, and mobility level with underlying impairments and functional limitations as documented above Presentation: Evolving Decision Makin moderate complexity Goals: N/A. PT evaluation and 1-2 treatment sessions only for functional mobility training using recommended AD and for HEP instruction. Plan of Care/Treatment Plan: N/A. PT evaluation and 1-2 treatment session only for functional mobility training using recommended AD and for HEP instruction. DISCHARGE RECOMMENDATIONS: Home when medically cleared by orthopedic surgeon. Will benefit from the use of front wheeled walker to reduce fall risk at home. May benefit from outpatient PT services to facilitate return to independent community ambulation without assistive device. TREATMENT CODE/TIME: 27933 x 25 minutes, 86659 x 29 minutes beginning at 13:11 PM. Thank you for the opportunity to participate in the care of this patient. Marie Hodgson PT, DPT, CLT [facility] [place], [place]
== END 2020-06-10 15:07 | disposition home or self-care (01) ==
PROVIDERS: PCP Family Medicine; Visit Provider Student in an Organized Health Care Education/Training Program
PROC: (CPT 27130; principal; 2020-06-10 07:30)
DX: M16.32 Unilateral osteoarthritis resulting from hip dysplasia, left hip (principal); J44.9 Chronic obstructive pulmonary disease, unspecified; Z96.642 Presence of left artificial hip joint
CPT/HCPCS: 27130; 20985; C1776; 97162; 97530; NC; 73501; J0690; J1100; J1885; J2250; J2405; J2704

== ENCOUNTER 2020-06-25 09:29 | Outpatient (CLI) | payer BC, SELFPAY ==
--- NOTE | 2020-06-25 09:00 | DI.RAD_ITS ---
EXAM: XR HIP LT COMPLETE AP PELVIS INDICATION: 1ST POST OP L SAQIB. COMPARISON: CR XR PELVIS AP from 06/02/2020 RF XR HIP LT IN OR from 06/10/2020 TECHNIQUE: 2D digital imaging was performed. FINDINGS: There has been no change in the alignment of the left hip prosthesis compared when compared to intrao perative images. No abnormal bony lucencies are seen. There are mild degenerative changes of the ri ght hip. DATA REPOSITORY: RADIATION DOSE DELIVERED:
== END 2020-06-25 09:30 | disposition home or self-care (01) ==
LOC: DIORS 09:29
PROVIDERS: PCP Family Medicine; Referring Provider Family Medicine; Visit Provider Student in an Organized Health Care Education/Training Program
DX: Z47.1 Aftercare following joint replacement surgery (principal); Z96.642 Presence of left artificial hip joint
CPT/HCPCS: 73502

== ENCOUNTER 2020-10-12 12:53 | Outpatient (REF) | payer BC, SELFPAY ==
[2020-10-13 11:29] LABS: COVID-19 RT-PCR UVMMC Result Negative (Negative)
== END 2020-10-12 12:54 | disposition home or self-care (01) ==
LOC: LBN 12:53
PROVIDERS: PCP Family Medicine; Visit Provider Nurse Practitioner Family
DX: Z20.822 Contact with and (suspected) exposure to COVID-19 (principal); J02.9 Acute pharyngitis, unspecified
CPT/HCPCS: U0003

== ENCOUNTER 2021-03-05 03:29 | Outpatient (CLI) | payer BC, SELFPAY ==
[2021-03-05 16:18] LABS: Abs Immature Grans 0.02 10^3/uL (0.0-0.06); Absolute Basophil Count 0.02 10^3/uL (0.0-0.2); Absolute Eosinophil Count 0.09 10^3/uL (0.0-0.7); Absolute Lymphocyte Count 1.06 10^3/uL (1.2-3.4); Absolute Monocyte Count 0.73 10^3/uL (0.1-0.8); Absolute Neutrophil Count 3.51 10^3/uL (1.2-6.7); Basophils % 0.4; Eosinophils % 1.7; HCT 40.9 % (40.0-50.0); HGB 13.1 g/dL (13.5-17.5); Immature Grans % 0.4; Lymphocytes % 19.5; MCV 96.7 fL (80-95); Monocytes % 13.4; Neutrophils % 64.6; Nucleated RBC 0 %; Platelet Count 230 10^3/uL (130-400); RBC 4.23 10^6/uL (4.36-5.78); RDW 14.5 % (11.8-14.1); RDW-SD 51.3 fL; WBC 5.43 10^3/uL (4.4-10.8)
[2021-03-05 16:57] LABS: ALT 34 U/L (16-63); AST 28 U/L (15-37); Albumin 4.1 g/dL (3.4-5.0); Alkaline Phosphatase 76 U/L (46-116); Anion Gap 8.9 mmol/L (3-11); BUN 22 mg/dL (7-18); Bilirubin, Total 0.4 mg/dL (0.2-1.0); CO2 29.1 mmol/L (21.0-32.0); Calcium 9.3 mg/dL (8.5-10.1); Chloride 104 mmol/L (98-107); Glucose 86 mg/dL (74-106); Potassium 4.1 mmol/L (3.5-5.1); Sodium 142 mmol/L (136-145); Total Protein 7.3 g/dL (6.4-8.2)
[2021-03-05 17:36] LABS: Calculated LDL 145 mg/dL (<100); Cholesterol 233 mg/dL (<200); HDL Cholesterol 51 mg/dL (40-60); Triglyceride 186 mg/dL (<150); Vitamin B12 948 pg/mL (193-986)
== END 2021-03-05 03:30 | disposition home or self-care (01) ==
LOC: LBO 03:29
PROVIDERS: PCP Family Medicine; Visit Provider Family Medicine
DX: C92.Z1 Other myeloid leukemia, in remission (principal); R03.0 Elevated blood-pressure reading, without diagnosis of hypertension
CPT/HCPCS: 36415; 80053; 80061; 82607; 85025

== ENCOUNTER 2021-06-14 15:04 | Outpatient (CLI) | payer BC, SELFPAY ==
--- NOTE | 2021-06-14 14:45 | DI.RAD_ITS ---
Exam(s) XR HIP LT AP LAT ONLY EXAM: XR HIP LT AP LAT ONLY INDICATION: ANNUAL F/U L SAQIB. COMPARISON: CR XR HIP LT COMPLETE AP PELVIS from 06/25/2020 TECHNIQUE: 2D digital imaging was performed. Two views FINDINGS: Stable appearance of left hip prosthesis. No abnormal bony lucencies. DATA REPOSITORY: RADIATION DOSE DELIVERED:
--- NOTE | 2021-06-14 15:00 | DI.RAD_ITS ---
Exam(s) XR HIP RT AP LAT ONLY EXAM: XR HIP RT AP LAT ONLY CLINICAL HISTORY: RIGHT HIP PAIN. TECHNIQUE: 2D digital imaging was performed. COMPARISON: CR XR HIP LT COMPLETE AP PELVIS from 06/25/2020 CR XR HIP LT AP LAT ONLY from 06/14/2021 FINDINGS: BONES: No acute fracture is present. No bony destructive lesion is seen. JOINTS: No dislocation present. Right hip: Progressive narrowing of right hip joint space, now ame re. Mild periarticular spurring, slightly worsened when compared the previous. No evidence of pratibha ening of the femoral head. Mild periarticular sclerosis. Calcification adjacent to greater trochant er, unchanged. Left hip: Stable appearance of left hip prosthesis without abnormal surrounding bony lucencies. SOFT TISSUE: Normal. IMPRESSION: Stable appearance of the left hip prosthesis. Progression of degenerative changes of the right hip, now severe. DATA REPOSITORY: RADIATION DOSE DELIVERED:
== END 2021-06-14 15:05 | disposition home or self-care (01) ==
PROVIDERS: PCP Family Medicine; Referring Provider Family Medicine; Visit Provider Student in an Organized Health Care Education/Training Program
DX: M25.551 Pain in right hip (principal); M16.11 Unilateral primary osteoarthritis, right hip; Z96.642 Presence of left artificial hip joint; Z47.1 Aftercare following joint replacement surgery
CPT/HCPCS: 73502

== ENCOUNTER → 2021-06-24 00:34 | Outpatient (CLI) | payer BC, SELFPAY ==
--- NOTE | 2021-06-24 08:45 | DI.RAD_ITS ---
Exam(s) RF JOINT INJECTION FLUORO GUID EXAM: RF JOINT INJECTION FLUORO GUID CLINICAL HISTORY: R HIP INJ-NO STERIOD,RT HIP PAIN, M25.551 TECHNIQUE: 2D and realtime digital imaging was performed. CONTRAST MATERIAL: Water soluble contrast was administered. COMPARISON: No exams were available for comparison FINDINGS: Fluoroscopy was provided for Dr. Mooney during the performance of a right hip injection. Please r efer to the procedure report for complete details. RADIATION DOSE DELIVERED: wanda Pablo=0.838 mGy
--- NOTE | 2021-06-24 14:17 | W.PROCNOTE ---
Date of service: 06/24/21 Time of Service: 14:17 Procedure Note Date of procedure: 06/24/21 Procedure: Right Hip Injection Surgeon/Proceduralist/Physician: Brock Mooney Procedure Diagnosis: Right Hip Osteoarthritis Procedure Indications: Sal has had persistent pain of the RIGHT hip and groin. Noninvasive measures have been tried. He also has history of spine surgery and back pain. To serve as diagnostic between the hip and the knee, an injection under fluoroscopy was recommended. I had discussed the risks of the procedure and the patient elected to proceed. Procedure Description: Sal was greeted in the flouroscopy room. The correct side was identified and the consent was reviewed with the patient and signed. The patient was then placed in the supine position on the fluoroscopy table. The RIGHT hip was then prepped with Chloraprep. The anterolateral injection starting point was identiifed by bony landmarks and fluoroscopy. The skin and soft tissue in the tract of the injection was anesthetized with 1% Lidocaine. A spinal needle was then inserted deep into the hip joint at the level of the lateral femoral neck under fluoroscopic guidance. A small amount of Omnipaque solution was injected to confirm intraarticular placement. Once confirmed, the hip was injected with 6cc of 0.5% Bupivicainel. A bandaid was placed on the injection site. The patient tolerated the procedure well and noted improvement in pre-injection pain.
[2021-06-24] MEDS: Bupivacaine 0.5% Pres-Free 10 ML VIAL 6 ML IV (14:56)
[2021-06-24] MEDS: Omnipaque 300 MG/ML 10 ML BTL IJ (14:57)
== END ==
PROVIDERS: PCP Family Medicine; Visit Provider Student in an Organized Health Care Education/Training Program
DX: M25.551 Pain in right hip (principal)
CPT/HCPCS: 20610; 77002

== ENCOUNTER 2021-09-13 03:13 | Outpatient (CLI) | payer BC, SELFPAY ==
[2021-09-13 09:01] LABS: HCT 42.2 % (40.0-50.0); HGB 13.6 g/dL (13.5-17.5); MCHC 32.2 % (32.0-36.0); MCV 96 fL (80-95); MPV 7.9 fL (8.0-11.0); Platelet Count 190 10^3/uL (130-400); RBC 4.39 10^6/uL (4.36-5.78); RDW 13.9 % (11.8-14.1); RDW-SD 49.4 fL; WBC 5.24 10^3/uL (4.4-10.8)
[2021-09-13 09:31] LABS: ALT 50 U/L (16-63); AST 47 U/L (15-37); Albumin 4.2 g/dL (3.4-5.0); Alkaline Phosphatase 76 U/L (46-116); Anion Gap 9.6 mmol/L (3-11); BUN 23 mg/dL (7-18); Bilirubin, Total 0.6 mg/dL (0.2-1.0); CO2 28.4 mmol/L (21.0-32.0); Calcium 9.4 mg/dL (8.5-10.1); Chloride 104 mmol/L (98-107); Glucose 91 mg/dL (74-106); Potassium 3.3 mmol/L (3.5-5.1); Sodium 142 mmol/L (136-145); Total Protein 7.9 g/dL (6.4-8.2)
[2021-09-13 11:30] LABS: Source Nasal/Nares
[2021-09-13 14:20] LABS: COVID-19 PCR Negative (Negative)
== END 2021-09-13 03:14 | disposition home or self-care (01) ==
LOC: LBO 03:13
PROVIDERS: PCP Family Medicine; Visit Provider Student in an Organized Health Care Education/Training Program
DX: M25.551 Pain in right hip (principal); M16.11 Unilateral primary osteoarthritis, right hip; R03.0 Elevated blood-pressure reading, without diagnosis of hypertension; Z20.822 Contact with and (suspected) exposure to COVID-19; Z01.818 Encounter for other preprocedural examination; Z01.812 Encounter for preprocedural laboratory examination
CPT/HCPCS: 36415; 80053; 85027; 87635

== ENCOUNTER 2021-09-13 03:40 | Outpatient (CLI) | payer BC, SELFPAY | END 2021-09-13 03:41 | disposition home or self-care (01) | LOC: LBO 03:40 | PROVIDERS: PCP Family Medicine; Visit Provider Student in an Organized Health Care Education/Training Program ==

== ENCOUNTER 2021-09-15 06:00 | Day surgery (SDC) | payer BC, SELFPAY ==
[2021-09-15] VITALS (14 sets, daily range): BP systolic 121–166; BP diastolic 68–92; PULSE 55–79; RESP 9–18; TEMP 36–36.4; O2SAT 94–100; BMI 28.0
[2021-09-15] MEDS: Acetaminophen 500 MG TAB 1000 MG PO (06:31)
[2021-09-15] MEDS: Celecoxib 200 MG CAP 400 MG PO (06:32)
--- NOTE | 2021-09-15 06:33 | ANES.PREOP_ITS ---
General Info Date of Service Date Performed: 09/15/21 Height: 5 ft 9.5 in Weight: 87.543 kg Body Mass Index (BMI): 28.0 Surgical Procedure: Operation Date: 09/15/21 07:50 Proposed Procedure Side Surgeon p Hip Total Hip Anterior Right Brock Mooney MD Meds Allergies and Home Medications Allergies Allergy/AdvReac Type Severity Reaction Status Date / Time erythromycin base AdvReac NAUSEA Verified 09/15/21 06:11 Home Medication Medication Instructions Recorded Centrum Silver Tablet 1 ea PO DAILY 07/17/12 flaxseed oil 1,000 mg capsule 2,000 mg PO DAILY 01/04/18 melatonin 3 mg tablet 6 mg PO HS 01/04/18 acetaminophen 650 mg 650 mg PO QID 06/08/20 tablet,extended release albuterol sulfate 90 mcg/actuation 2 puff inhalation QID PRN 08/31/20 aerosol inhaler (Ventolin HFA) shortness of breath or wheezing #18 grams omeprazole 20 mg capsule,delayed 20 mg PO DAILY #90 tab-caps 01/19/21 release trazodone 50 mg tablet 50 mg PO HS #90 tabs 06/30/21 budesonide-formoterol HFA 80 2 puff inhalation BID #30.6 grams 07/22/21 mcg-4.5 mcg/actuation aerosol inhaler (Symbicort) celecoxib 200 mg capsule See Rx Instructions .Route .COMPLEX 07/22/21 gabapentin 100 mg capsule 100 mg PO QHS #90 caps 07/22/21 hydrochlorothiazide 12.5 mg tablet 12.5 mg PO QAM #90 tabs 08/04/21 L.acidophilus,rhamnosus-B.breve-S.thermophilus 1 tab 09/15/21 3 billion cell chew tab Current Visit Medications: Current Medications Generic Name Dose Route Start Last Admin Trade Name Freq PRN Reason Stop Dose Admin Acetaminophen 1,000 mg 09/15/21 06:00 09/15/21 06:31 Acetaminophen 500 Mg Tab PO 09/15/21 16:00 1,000 mg PREOP MATHEW Administration Celecoxib 400 mg 09/15/21 06:00 09/15/21 06:32 Celecoxib 200 Mg Cap PO 09/15/21 16:00 400 mg PREOP MATHEW Administration Tranexamic Acid 1,000 mg/ 60 mls @ 360 mls/hr 09/15/21 06:00 Sodium Chloride IV 09/15/21 16:00 PREOP MATHEW Ringer's Solution 1,000 mls @ 80 mls/hr 09/15/21 06:00 IV 10/14/21 23:59 INFUSION MATHEW Cefazolin Sodium/Dextrose 2 gm in 50 mls @ 100 mls/hr 09/15/21 06:00 Ancef Duplex IVPB 10/14/21 23:59 PREOP MATHEW IV Miscellaneous Supplies 1 each 09/15/21 06:00 Iv Access IV 10/14/21 23:59 DIRECTED MATHEW Sodium Chloride 0 ml 09/15/21 06:00 Normal Saline Flush 10 Ml Syr IV 10/14/21 23:59 PRN PRN Sodium Chloride 0 ml 09/15/21 06:00 Normal Saline 10 Ml Vial IJ 10/14/21 23:59 DIRECTED PRN Sterile Water 0 ml 09/15/21 06:00 Water,Injection,Sterile 10 Ml Vial IJ 10/14/21 23:59 DIRECTED PRN PFSH Active Problems Active Problems: Problem Status Onset Code BCC (basal cell carcinoma), face 09/06/17 C44.310 Calcific tendinitis of left shoulder 05/03/17 M75.32 Cataract H26.9 of child 09/26/17 Z63.4 Lipoma D17.9 Malignant melanoma of skin 09/17/11 C43.9 Other myeloid leukemia in remission 02/17/79 C92.Z1 Obstructive sleep apnea syndrome G47.33 Other myeloid leukemia, in remission 02/17/79 C92.Z1 Peptic reflux disease K21.9 Polyp of colon K63.5 Restless legs 07/24/13 G25.81 Sciatica M54.30 Seborrheic keratoses 08/23/17 L82.1 Status post hernia repair Z98.890, Z87.19 LEBLANC (dyspnea on exertion) R06.09 Left leg pain M79.605 Left hip pain M25.552 Osteoarthritis resulting from left hip dysplasia M16.32 Radiculopathy, lumbar region M54.16 Polyp of colon, adenomatous D12.6 Dyspnea R06.00 Encounter for annual physical exam Z00.00 Left hip pain M25.552 Diverticulosis ~04/24/20 K57.90 Pneumonia J18.9 COVID-19 U07.1 Elevated blood pressure reading in office with white coat syndrome, without diagnosis of hypertension R03.0 Chronic low back pain with left-sided sciatica M54.42, G89.29 Primary osteoarthritis of right hip M16.11 Medical History Medical History GERD (gastroesophageal reflux disease) History of fracture of leg Left w/jackie Hx of fracture of leg with surgical repair (L) Leukemia 1979 Surgical History Surgical History Hernia Repair, Incisional left History of back surgery History of colonoscopy History of total left hip arthroplasty (06/10/20) Hx of bone marrow transplant Hx of removal of cyst Left knee Tobacco Smoking/Tobacco Use Status: Never Passive smoking exposure: No Second hand exposure: No Alcohol Alcohol Intake: former Substance Use Substance use: Never Substance use type: does not use Vital Signs and Lab Results Lab Results Blood Type / Crossmatch: No Data to Display Complete Blood Count: White Blood Count 5.24 10^3/uL (4.4-10.8) 09/13/21 08:53 Red Blood Count 4.39 10^6/uL (4.36-5.78) 09/13/21 08:53 Hemoglobin 13.6 g/dL (13.5-17.5) 09/13/21 08:53 Hematocrit 42.2 % (40.0-50.0) 09/13/21 08:53 Platelet Count 190 10^3/uL (130-400) 09/13/21 08:53 Complete Metabolic Panel: Sodium Level 142 mmol/L (136-145) 09/13/21 08:53 Potassium Level 3.3 mmol/L (3.5-5.1) L 09/13/21 08:53 Chloride Level 104 mmol/L (98-107) 09/13/21 08:53 Carbon Dioxide Level 28.4 mmol/L (21.0-32.0) 09/13/21 08:53 Blood Urea Nitrogen 23 mg/dL (7-18) H 09/13/21 08:53 Creatinine 1.0 mg/dL (0.70-1.30) 09/13/21 08:53 Estimated GFR/1.73 m2 >= 60.00 (mL/min/1.73m2) 09/13/21 08:53 Calcium Level 9.4 mg/dL (8.5-10.1) 09/13/21 08:53 Albumin 4.2 g/dL (3.4-5.0) 09/13/21 08:53 Glucose Level 91 mg/dL (74-106) 09/13/21 08:53 Liver Function Panel: Alanine Aminotransferase (ALT/SGPT) 50 U/L (16-63) 09/13/21 08: 53 Aspartate Amino Transf (AST/SGOT) 47 U/L (15-37) H 09/13/21 08: 53 Coagulation Panel: No Data to Display Cardiac Panel: No Data to Display Arterial Blood Gas: No Data to Display Venous Blood Gas: No Data to Display Pancreas Panel: No Data to Display Thyroid Panel: No Data to Display Infectious Disease: Coronavirus (COVID-19)(PCR) Negative (Negative) 09/13/21 09:03 Coronavirus 2019 Source Nasal/Nares 09/13/21 09:03 Blood Cultures: No Data to Display Toxicology Panel: No Data to Display Imaging and Studies Imaging and Studies Study information below may be from another EMR and interpreted by another provider. Please see original notes in EMR for more complete details. EKG Summary: Conclusion Sinus rhythm...normal P axis, V-rate 60- 99 Stress Test Summary: - Normal study after maximal exercise. - Low risk of cardiac events. Summary: 1. Myocardial perfusion imaging: No myocardial perfusion defects noted. 2. The calculated left ventricular ejection fraction after stress: 50%. LV global systolic function is low normal. No left ventricular regional motion abnormality. 3. Stress ECG conclusions: The stress ECG is negative. 4. Stress: The target heart rate was achieved. The heart rate response to stress is exaggerated. There is a normal resting blood pressure with an appropriate response to stress. The patient experienced no chest pain during stress. Exercise capacity is average for age. 5. Treadmill exercise testing was performed using the Solomon protocol. The patient exercised for 9 min 32 sec, to protocol stage 3, to a maximal work rate of 11mets. Exercise was terminated due to fatigue. Imaging information: gated. Image quality reduced due to diaphragmatic attenuation. Attenuation correction used. Pulmonary Function Summary: Impression Mild obstructive airways disease with no bronchodilator response, this is associated with mild diffusion defect Clinical Correlation therefore is recommended. Anesthesia Assessment and Plan Anesthesia History Personal History: No History of Anesthesia Complications Family History: No Family History of Anesthesia Complications Exercise Tolerance Exercise Tolerance: Metabolic Equivalents>4 Pertinent Negatives Pertinent Negatives: No Symptoms of GERD (Well controlled on Omeprazole.), No Major Cardiovascular Symptoms or Complaints, No Major Pulmonary Symptoms or Complaints and No History of CVA/TIA Cardiac & Pulmonary Exam Cardiac Exam: Normal S1/S2 Heart Sounds Pulmonary Exam: Clear Bilateral Breath Sounds Implantable Cardiac Device Does patient have a Pacemaker or an ICD?: No Airway Exam Known Difficult Airway: No Mallampati Class: 2 Mouth Opening: Normal (> 3cm) Thyromental Distance: Greater than 3 cm Neck Range of Motion: Full ROM Neck Circumference: Normal Teeth Condition: Normal Dentition ASA Classification ASA Score: ASA 2 Emergency Case?: No NPO Status NPO Status: NPO Clears >2 hours, Solids >8 hours Anesthesia Plan Resuscitation Status: Full Code Anesthesia Technique: Spinal Anesthesia (Will attempt x 1 level. If unable to obtain will move to GA. ) Airway Planned: Natural Airway Monitors Used: Standard Monitors
[2021-09-15] MEDS: Lactated Ringers 1,000 ML 80 ML IV (07:00)
--- NOTE | 2021-09-15 07:34 | W.PM.DSUDISC ---
Discharge Plan Disposition Patient Disposition: HOME Condition: Good Discharge Details Reason For Visit: right SAQIB Attending Provider: Brock Mooney Primary Care Provider: Anabel Galvin Home Meds and New Rx's Prescriptions: New acetaminophen 500 mg capsule 1,000 mg PO Q8H PRN PRNQty: 90 0RF aspirin 81 mg tablet,delayed release (DR/EC) 81 mg PO BID Qty: 60 0RF celecoxib [Celebrex] 200 mg capsule 200 mg PO BID Qty: 60 0RF oxycodone 5 mg tablet 5 mg PO Q4H PRNQty: 18 0RF Continued celecoxib 200 mg capsule See Rx Instructions .ROUTE .COMPLEX Dose Instruction: TAKE 1 CAPSULE BY MOUTH TWICE A DAY NEEDED FOR PAIN Label Comments: pt states he is trying to wean off, per pcp recommendation. Taking 1 per day--karina nesbitt Rx Instructions: TAKE 1 CAPSULE BY MOUTH Q36 H NEEDED FOR PAIN budesonide-formoterol [Symbicort] 80-4.5 mcg/actuation HFA aerosol inhaler 2 puff IH BID Qty: 30.6 5RF gabapentin 100 mg capsule 100 mg PO QHS Qty: 90 4RF CENTRUM SILVER TABLET 1 EACH tablet 1 ea PO DAILY flaxseed oil 1,000 mg capsule 2,000 mg PO DAILY melatonin 3 mg tablet 6 mg PO HS albuterol sulfate [Ventolin HFA] 90 mcg/actuation HFA aerosol inhaler 2 puff IH QID PRN (Reason: shortness of breath or wheezing) Qty: 18 6RF Label Comments: pt reports weeks omeprazole 20 mg capsule,delayed release(DR/EC) 20 mg PO DAILY Qty: 90 3RF trazodone 50 mg tablet 50 mg PO HS Qty: 90 4RF hydrochlorothiazide 12.5 mg tablet 12.5 mg PO QAM Qty: 90 4RF L.acid-L.rham-B.breve-S.therm 3 billion cell Tablet,Chewable 1 tab Discontinued acetaminophen 650 mg Tablet Extended Release 650 mg PO QID Discharge Instructions Additional Instructions: Total Hip Discharge Instructions Activity: The most important activity is to walk. You should try to take short walks a few times a day. You have no restrictions on movement or positioning, but do not try to force what you do. You will find some stiffness and weakness with hip flexion (lifting your knee). Do not try to strengthen this too early, continue to practice walking and stairs and this will come. - Outpatient physical therapy can be helpful to help return you to a normal gait and improve your flexibility and strength. This can start around 2 weeks. For some patients, it?s not necessary. Usually this is determined at the time of discharge or at the first post-operative visit. - You should wear the DANISHA hose on both legs for 2 weeks. Dressing: Keep the surgical dressing in place for at least one week. After the first week it may be removed and replace with light gauze and tape or nothing. It may get wet after 3 days but avoid soaking the dressing. If it gets wet, just lightly pat dry. It is important to always keep some gauze between skin folds, especially when you are sitting. Spend some time with the wound exposed when you are lying flat as the incision does wrinkle onto itself. Medications: - You should take Tylenol and an anti-inflammatory Celebrex as your primary pain control medications. If the Celebrex is too expensive or not covered, please call the office for another alternative (Advil/Ibuprofen or Naproxen/Aleve). - You have been prescribed a stronger pain medication Oxycodone for breakthrough pain, take as needed as prescribed. - Continue with your previous stomach acid reduction agent Omeprazole to help reduce stomach acid and reflux. - You will be taking Aspirin 81mg twice a day for DVT prevention unless instructed otherwise. - If you have constipation you should take Colace or Miralax (both [id number]). It takes most people 3-4 days to have a bowel movement. Follow-up: 2 weeks If you have any acute concerns or questions, please do not hesitate to contact the office at [phone]. You may contact Dr. Mooney with any questions after hours through the hospital at [phone] or on his cell phone at [phone]. Referrals: Brock Mooney MD [ [facility] STAFF PHYSICIAN] - Equipment/Supplies: Walker Activity:: Activity as Tolerated Remove Dressings/Wound Care:: Do Not Remove Shower/Bathe:: 72 hours Diet:: As Tolerated Discharge Orders Discharge Orders: Discharge Order (Routine); Ordered 09/15/21 Ordered By: Justine Molina
[2021-09-15] MEDS: ceFAZolin 2 GM/50 ML BAG IVPB (07:37)
--- NOTE | 2021-09-15 09:10 | DI.RAD_ITS ---
Exam(s) XR HIP RT IN OR EXAM: XR HIP RT IN OR CLINICAL HISTORY: Primary osteoarthritis of right hip TECHNIQUE: 2D and realtime digital imaging was performed. COMPARISON: No exams were available for comparison FINDINGS: C-arm fluoroscopy was utilized by Dr. Mooney during placement of a total hip joint replacement on t he right. Hard copies show the components to be well seated. IMPRESSION: RADIATION DOSE DELIVERED: wanda Pablo=3.88 mGy
[2021-09-15] MEDS: fentaNYL 100 MCG/2 ML VIAL IVP (09:44)
[2021-09-15] MEDS: Normal Saline 10 ML VIAL IJ (09:57)
[2021-09-15] MEDS: HYDROmorphone 2 MG/ML VIAL IVP ×3 (09:57→10:32)
--- NOTE | 2021-09-15 10:17 | ROE_ITS ---
Date of service: 09/15/21 Time of Service: 09:15 Operative Note Operative Note DATE OF PROCEDURE: 09/15/21 PRE-OP DIAGNOSIS: Right Hip Arthritis POST-OP DIAGNOSIS: same PROCEDURE: Right Anterior Total Hip Arthroplasty with Intraoperative Navigation SURGEON: Brock Mooney COMMERCIAL LOAN REVIEWER: Justine Molina ANESTHESIA TYPE: Spinal Refer to Anesthesia Record ESTIMATED BLOOD LOSS: 150 PATHOLOGY: none sent TOURNIQUET TIME: 0 COMPLICATIONS: None Patient was transported to: PACU Patient's condition: stable Implants: 1. Depuy [place] Acetabular Component, 52mm 2. Depuy Acetabular Liner, [id number] 3. Depuy Corail Standard 125 degree Collared Femoral Stem, Size 9 4. Depuy Altrx Ceramic Femoral Head, Size 36+5mm Indications: I have seen Sal in clinic for symptoms of hip arthritis, confirmed with radiographic findings. He has exhausted nonoperative methods and was having significant limitations in daily function and desired better function and less pain. He had a previous successful replacment of the left hip. I discussed the technical details of a hip replacement. I explained the risks of the procedure to include, but not limited to, bleeding, infection, pain, stiffness, fracture, damage to nerves and vessels, damage to muscles and tendons, loosening, instability, leg length inequality, need for repeat procedure, blood clot and cardiopulmonary demise. Despite these risks, Sal elected to proceed. Findings: There was significant signs of arthritis throughout the hip. The superior aspect of the femoral head was eburnated without cartilage present. Procedure Description: Sal was greeted in the preoperative holding area where the correct side was identified and marked. The consent was reviewed with the patient and signed. The history and physical was updated. All questions were answered. He was taken back to the operating room. A spinal anesthestic was then administered. The feet were wrapped with cast padding and Coban and then placed into the boot liners and then into the boots. Care was taken to protect the skin and make sure the heels were fully down and the boots were stable. The patient was then positioned onto the HANA table. Both legs were held in a neutral position. SCDs were applied. The patient was then slid down onto a peroneal post. Prophylactic antibiotics in the form of Cefazolin were a dministered. 1g of Tranxemic Acid was given intravenously within 30 minutes of incision. The right leg was then prepped with Chloraprep and draped in a standard fashion. A second prep with Chloraprep was performed prior to placement of a shower-curtain type drape with Iodine impregnated skin protection. A timeout to confirm correct identity, side and site, procedure, allergies, anesthesia, and medical concerns was performed. An obliquely oriented incision was made starting lateral to the ASIS and running distal over the Tensor Fascia Rosalia (TFL) muscle belly toward the fibular head, approximately 10cm. The skin and soft tissue was dissected sharply, through Marleni?s fascia, and to the fascia of the TFL. With the fascia and superior border of the IT band identified, the fascia was incised with a new knife just above any perforators from the IT band. The TFL muscle belly was bluntly dissected away from the fascia and moved laterally. The fat between TFL and rectus was identified to ensure the dissection was not within the TFL. Blunt dissection created space between abductors and the capsule and retractor was placed over the lateral femoral neck. The fibers of the rectus femoris tendon were identified and these were freed from the anterior capsule. A second cobra retractor was placed around the medial femoral neck. The TFL was further retracted laterally to show the deep fascia. Careful dissection through this layer identified three main crossing vessels of the lateral femoral circumflex. These were cauterized in multiple locations and then cut without any noticeable bleeding. The TFL was further released bluntly from the deep fascia to expose anterior hip capsule and fat The Guerrero orthopaedic retractor was then placed beneath the TFL and against sartorius and medial soft tissues to protect and retract the soft tissues. A T-capsulotomy was then performed starting at the superior lateral acetabulum and moving distally to the intertrochanteric ridge. These capsular flaps were tagged with a No. 1 Ethibond and elevated from within. The capsular flaps were released to the shoulder of the lateral neck and to the lesser trochanter to give excellent visualization of the proximal femur. A neck osteotomy was performed using an oscillating saw based on preoperative templates. This cut started in the shoulder and of the lateral neck and exited medially. The saw was at all times directed medially to avoid injury to the greater trochanter. Gross traction was applied to the leg and the osteotomy opened. The femoral head was removed with a corkscrew, making sure to protect the TFL on its exit. Traction was released after head removal. This was measured on the back table to determine the starting reamer size. Portions of the rectus obscuring visualization were minimally elevated off the superior acetabulum. An anterior retractor was placed over the anterior wall between capsule and labrum and attached to the Gripper retraction system. The femur was rotated to 90 degrees and medial capsule was fully released until the lesser trochanter was palpable and visible; the femur was returned to 30 degrees. A posterior retractor was placed similarly between capsule and labrum. This provided excellent visualization. The contents of the cotyloid fossa were removed with electrocautery and the labrum was removed with a knife. There was a notable floor osteophyte. There was significant chondromalacia of the superior acetabulum. Acetabular reaming began with a 46mm reamer. This first reaming was directed anterior to posterior and medial to get down to the true floor. This was inspected and reamed until the true floor was reached. The anterior retractor was then released and entry and exit was provided by traction on the capsular flaps. I then reamed sequentially up to a 52mm reamer where good fit was obtained. The larger reamers were oriented based on anatomical reference of the anterior and lateral fajardo to ensure proper abduction and anteversion. Positioning and size was confirmed with the fluoroscopy. A 52mm Depuy [place] acetabular component was selected. The acetabulum was reamed around the periphery with the selected acetabular size to prevent a rim fit. The deep tissues were irrigated. The acetabular component was then impacted in a position of about 40-45 degrees of abduction and 15-20 degrees of anteversion, using the patient?s anatomy as the ultimate landmark. Fluoroscopy was used to confirm this. There was excellent final application reviewer of the acetabular component and the inserting handle was removed. The acetabular liner, Depuy [id number] polyethylene liner, was inserted and lined up with the tines of the acetabular component. There was no soft tissue interposition. The liner was then impacted into position and confirmed to be well-seated. A portion of the carlos-articular cocktail was then injected around the acetabulum into the capsule and periosteum. This cocktail consisted of 123mg of Ropivacaine, 0.25mg of Epinephrine, 0.04mg of Clonidine, and 15mg of Ketorolac, diluted to 50cc. The leg was rotated to 120 degrees. Any remaining medial capsule was released until the lesser trochanter was easily palpable. A retractor was placed medially. The lateral capsule was further released into the shoulder to allow access to the greater trochanter. A Mejia retractor was placed over the greater trochanter which allowed the trochanter to flip in front of the capsule for excellent exposure. The leg was brought down into maximal extension and 20 degrees of adduction while ensuring there was no impingement on the acetabulum. Any remnant capsule within the trochanter was released. Piriformis and obturator externis were identified and protected. There was excellent access to the proximal femur. The lateral neck remnant was removed with a rongeur. A blunt canal probe was used to identify the canal and trajectory for later broaching. A box osteotome initiated the broach course. A small curved rasp and a curved curette were used to work laterally. Broaching then began with a size 8 Corail broach. This was inserted manually around the trochanter and into the canal before mallet blows. The broach was seated to a few millimeters below the cut level based on the neck cut and the preoperative template. Sequential broaching was continued with the Mindmancerse pneumatic broaching device until a tight fit was obtained with good rotational control of the femur. The bone was extremely dense. Cortical thickness was significant and multiple passes with a rongeur and curved currette were utilized to remove lateral bone and neck remnant. A trial [place] neck was inserted along with a +1.5 trial head. The leg was brought out of extension and adduction and then reduced with traction and internal rotation. The leg was stable anteriorly in a position of 30 degrees of extension and 90 degrees of external rotation. Fluoroscopy was used to ensure there was no fracture and the stem was seated well. Leg lengths were checked with an AP pelvis and pelvic reference points. [employer] navigation system was used to confirm appropriate positioning and leg length and offset. This slightly over-corrected the offset and by going to a 125 standard +5 and advancing the broach 2mm the leg length and offset would be corrected appropriately. Once content with the desired offset and leg lengths, the leg was brought back into extension, external rotation and adduction. The periosteum and surrounding tissue was injected with remaining portion of the carlos-articular cocktail. The proximal femur was irrigated as well as the deep tissues. The [place] Corail Standard 125 degree collared stem, size 9, was then manually inserted into the proximal femur making sure to control rotation. It was then malleted into position with light blows, giving breaks to allow bone expansion and decrease risk of fracture. The selected Depuy Altrx Ceramic Head, size 36+5mm, was then placed onto the clean and dry trunnion and secured with impaction onto the tapered fit. The leg was brought back out of extension and adduction and reduced with traction and internal rotation. Stability was confirmed with no shuck at 90 degrees of external rotation and 30 degrees of extension. No impingement through range of motion arc. Final x-ray images were obtained with fluoroscopy to confirm adequate positioning and no intraoperative fracture. The deep tissues were thoroughly irrigated with Surgiphor, betadine solution. This was allowed to sit in the wound for 3 minutes before being thoroughly irrigated out with normal saline. The capsule was then reapproximated with the previously placed Ethibond sutures. The TFL fascia was finally closed with a No. 2 Stratafix, barbed suture. Deep tissues were then reapproximated with 0 Vicryl and a running 2-0 Vicryl. The skin was closed with a running 4-0 Monocryl in a subcuticular fashion. This was reinforced with skin glue. A Mepilex silver dressing was applied. At the end of the case, all counts were correct. Sal was transferred to the hospital bed without difficulty and suffering no apparent complication. Sal has a good prognosis. Physical therapy will start today and without restrictions, weight-bearing as tolerated. Aspirin 81mg BID will be used for DVT prophylaxis.
--- NOTE | 2021-09-15 16:06 | IN_ITS ---
PT Notes Visit Reasons: right SAQIB Inpatient Physical Therapy Evaluation Date: 09/15/2021 Referring Doctor: Brock Mooney MD PT Orders: PT CONSULT: Status post right SAQIB Precautions: Fall Patient Profile/Admitting Diagnosis: 56-year-old male with osteoarthritis of the right hip status post right [place] earlier today PMHX: edical History? GERD (gastroesophageal reflux disease) History of fracture of leg Left w/rodHx of fracture of leg with surgical repairLeukemia Surgical History? 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 His bedroom and bathroom on the first floor and has a walk-in shower with a lower lip. No grab bars or flexible hose. Couple steps entering the home Current Functional Limitations: Was independent with all ADLs Equipment Owned/DME: Walker and crutch Subjective: Patient complain of some discomfort along the lateral aspect of the right hip but this resolved after walking Objective: General Observation: Pleasant, cooperative and no abnormal pain behavior noted Mental Status: Alert and oriented x3 Pain: Initially complained of some discomfort throughout the posterior lateral aspect of the right hip but this resolved Vital Signs: Pulse after ambulation was 76 bpm and regular ROM: His active assistive range of motion throughout has good functional range and nonpainful. His active assistive right hip motion is 90 degrees of flexion and rotation 30 degrees and nonirritable Strength: Strength generally rated -5/5 throughout except for his right hip musculature at 3/5 and quads at 4/5 Neuro: Intact Bed Mobility/Transfers: Independent with assuming the supine to sitting to standing positions Gait: Ambulated with a wheeled walker for greater than 100 feet with weightbearing as tolerated the right lower extremity. He will occasionally walk while lifting the walker with stable gait. I encouraged him to use the walker least initially the next day or so until he had good dynamic stability. He is able to ascend and descend 3 steps with a railing with the appropriate technique Balance: Static Sitting: Stable Dynamic Sitting: Stable Static Standing: Stable Dynamic Standing: Stable Special Tests: Mobility Limitations Standardized Measure [facility] AM-PAC 6 clicks Basic Mobility Inpatient Short Form: Raw Score: 23 standardized Score: 6.22 CMS Score: 11.20% Informed Consent/Education: Patient instructed in purpose of PT consult and plan of care. Assessment: Patient is a 66year old male referred to physical therapy services with the diagnosis of osteoarthritis of the right hip status post SAQIB earlier today. Patient presents with clinical signs and symptoms consistent with this diagnosis, as demonstrated by the following impairment level findings: Nonpainful right hip range of motion along with ambulation with a wheeled walker weightbearing as tolerated with stable gait. Patient is assessed as a Low 97509 3 complexity based on the following: History: See comorbidities and social history Examination: See above for functional imitations and impairments Presentation: Stable Decision Making: Low complexity based on clinical findings Goals: All goals have been met for independent bed mobility, and ambulation with a wheeled walker with a stable gait as well as stair climbing Plan of Care/Treatment Plan: Today's session consisted of evaluation, patient education, along with instructing home program consisting of quad and gluteal sets and ankle pumping. His bed mobility was assessed, he was instructed in gait training with a FWW weightbearing as tolerated on right lower extremity along with stair climbing. He has a follow appointment with Dr. Mooney in 2 weeks, and he needs further rehab at that time, his physician will discuss this with him. DISCHARGE RECOMMENDATIONS: Home with no services TREATMENT CODE/TIME: 95259 /30 minutes Disclaimer: This note was created using [employer] voice recognition software. It was reviewed for major content. However, there may be multiple small discrepancies and errors due to the voice recognition aspects of the software.
--- NOTE | 2021-09-16 06:09 | W.ANESPOSTOP ---
Postoperative Evaluation Date, Time and Location Date Performed: 09/16/21 Time Performed: 06:09 Patient Location: Day Surgery Unit Vital Signs Most Recent Imported Vital Signs: Most Recent Vital Signs Temp Pulse Resp BP Pulse Ox 36.2 C L 77 16 141/91 H 98 09/15/21 13:52 09/15/21 13:52 09/15/21 13:52 09/15/21 13:52 09/15/21 13:52 Pain Score Most Recent Pain Score: Most Recent Pain Score Pain Level 2 09/15/21 13:52 Assessment Mental Status: Awake (Alert & Oriented to Patient Baseline) Airway and Respiratory Function: Patent airway with normal (patient baseline) respiratory exam Cardiovascular Function: Hemodynamically Stable Hydration Status: Adequately Hydrated Nausea & Vomiting: Active Nausea or Vomiting Present Nausea and Vomiting Management: Other (Patient one episode n/v. denied wish for medications. felt better post vomiting. requested to be discharged. ) Pain: Pt. Denies Any Pain Peripheral Nerve Block: Patient did not receive a nerve block Postoperative Comments:: Patient seen yesterday prior to discharge and was appropriate. Postop not documented DOS in error.
== END 2021-09-15 14:47 | disposition home or self-care (01) ==
PROVIDERS: PCP Family Medicine; Visit Provider Student in an Organized Health Care Education/Training Program
PROC: (CPT 27130; principal; 2021-09-15 07:30)
DX: M16.11 Unilateral primary osteoarthritis, right hip (principal); G47.33 Obstructive sleep apnea (adult) (pediatric); K21.9 Gastro-esophageal reflux disease without esophagitis
CPT/HCPCS: 27130; 20985; 97161; 73501; J0690; J1100; J2250; J2405; J2704; J3010

== ENCOUNTER 2021-09-30 09:52 | Outpatient (CLI) | payer BC, SELFPAY ==
--- NOTE | 2021-09-30 09:00 | DI.RAD_ITS ---
Exam(s) XR HIP RT COMPLETE AP PELVIS EXAM: XR HIP RT COMPLETE AP PELVIS CLINICAL HISTORY: 1ST POST OP R SAQIB. TECHNIQUE: 2D digital imaging was performed. Two images were obtained. AP and lateral views were ob tained. COMPARISON: CR XR HIP RT AP LAT ONLY from 06/14/2021 RF RF JOINT INJECTION FLUORO GUID from 06/24/2021 XA XR HIP RT IN OR from 09/15/2021 FINDINGS: BONES: There are stable post operative changes present. No fracture or dislocation. JOINTS: The orthopedic hardware is in good position. SOFT TISSUE: Normal. IMPRESSION: Stable postoperative changes. DATA REPOSITORY: RADIATION DOSE DELIVERED:
== END 2021-09-30 09:53 | disposition home or self-care (01) ==
LOC: DIORS 09:52
PROVIDERS: PCP Family Medicine; Visit Provider Physician Assistant Surgical
DX: Z96.641 Presence of right artificial hip joint (principal)
CPT/HCPCS: 73502

== ENCOUNTER 2022-03-22 15:44 | Outpatient (CLI) | payer BC, SELFPAY ==
[2022-03-22 14:35] LABS: HGB 13.8 g/dL (13.5-17.5); MCH 30.7 pg (27.0-33.0); MCHC 32.9 % (32.0-36.0); MCV 93 fL (80-95); MPV 7.9 fL (8.0-11.0); Platelet Count 196 10^3/uL (130-400); RDW 14.2 % (11.8-14.1); RDW-SD 49.1 fL; WBC 5.61 10^3/uL (4.4-10.8)
[2022-03-22 15:24] LABS: ALT 40 U/L (16-63); AST 42 U/L (15-37); Albumin 4.4 g/dL (3.4-5.0); Alkaline Phosphatase 75 U/L (46-116); BUN 19 mg/dL (7-18); Bilirubin, Total 0.5 mg/dL (0.2-1.0); CREATININE 0.9 mg/dL (0.70-1.30); Calcium 9.6 mg/dL (8.5-10.1); Calculated LDL 114 mg/dL (<100); Chloride 100 mmol/L (98-107); Cholesterol 214 mg/dL (<200); Estimated GFR 94.19 (mL/min/1.73m2); Glucose 114 mg/dL (74-106); HDL Cholesterol 54 mg/dL (40-60); Potassium 3.4 mmol/L (3.5-5.1); Sodium 140 mmol/L (136-145); TSH (W/Ref FT4) 1.64 uIU/mL (0.36-3.74); Triglyceride 233 mg/dL (<150)
== END 2022-03-22 15:45 | disposition home or self-care (01) ==
LOC: LBO 15:45
PROVIDERS: PCP Family Medicine; Visit Provider Family Medicine
DX: Z00.00 Encounter for general adult medical examination without abnormal findings (principal); Z12.5 Encounter for screening for malignant neoplasm of prostate
CPT/HCPCS: 36415; 80053; 80061; 84153; 85027; 84443

== ENCOUNTER 2022-09-15 10:30 | Outpatient (CLI) | payer MEDICARE, SELFPAY ==
--- NOTE | 2022-09-15 10:00 | DI.RAD_ITS ---
Exam(s) XR HIP RT AP LAT ONLY EXAM: XR HIP RT AP LAT ONLY INDICATION: ANNUAL F/U R SAQIB. COMPARISON: CR XR HIP RT COMPLETE AP PELVIS from 09/30/2021 TECHNIQUE: 2D digital imaging was performed. Two views. FINDINGS: There has been no change in the alignment of the right hip prosthesis. There are no suspicious bony lucencies. DATA REPOSITORY: RADIATION DOSE DELIVERED:
== END 2022-09-15 10:31 | disposition home or self-care (01) ==
LOC: DIORS 10:31
PROVIDERS: PCP Family Medicine; Referring Provider Family Medicine; Visit Provider Student in an Organized Health Care Education/Training Program
DX: Z47.1 Aftercare following joint replacement surgery (principal); Z96.641 Presence of right artificial hip joint
CPT/HCPCS: 99213; 73502

== ENCOUNTER 2023-11-16 04:51 | Outpatient (CLI) | payer MEDICARE, SELFPAY ==
[2023-11-16 11:34] LABS: ALT 52 U/L (16-63); AST 47 U/L (15-37); Albumin 4.5 g/dL (3.4-5.0); Alkaline Phosphatase 69 U/L (46-116); Anion Gap 10.3 mmol/L (3-11); BUN 23 mg/dL (7-18); Bilirubin, Total 0.57 mg/dL (0.2-1.0); CO2 30.7 mmol/L (21.0-32.0); Calcium 9.5 mg/dL (8.5-10.1); Calculated LDL 109 mg/dL (<100); Chloride 101 mmol/L (98-107); Cholesterol 178 mg/dL (<200); Estimated GFR 81.98 (mL/min/1.73m2); Glucose 81 mg/dL (74-106); HDL Cholesterol 52 mg/dL (40-60); Potassium 3.5 mmol/L (3.5-5.1); Sodium 142 mmol/L (136-145); Total Protein 7.8 g/dL (6.4-8.2); Triglyceride 88 mg/dL (<150)
[2023-11-17 00:01] LABS: PSA, Diagnostic 1.1 ng/mL (<=4.5)
[2023-11-17 09:28] LABS: Hepatitis C Ab w Rflx HCV PCR Negative (Negative)
[2023-12-02 09:45] LABS: Testosterone, Free 4.29 ng/dL (3.47-13.0); Testosterone, Total 158 ng/dL (240-950)
== END 2023-11-16 04:52 | disposition home or self-care (01) ==
PROVIDERS: PCP Family Medicine; Visit Provider Family Medicine
DX: Z11.59 Encounter for screening for other viral diseases (principal); I10 Essential (primary) hypertension; R68.82 Decreased libido; N40.0 Benign prostatic hyperplasia without lower urinary tract symptoms
CPT/HCPCS: 36415; 80053; 80061; 84402; 84403; 86803; 84153

== ENCOUNTER 2024-10-21 09:27 | Outpatient (CLI) | payer MEDICARE, SELFPAY ==
[2024-10-21 13:11] LABS: ALT 41 U/L (16-63); AST 31 U/L (15-37); Albumin 4.0 g/dL (3.4-5.0); Alkaline Phosphatase 60 U/L (46-116); Anion Gap 6.8 mmol/L (3-11); BUN 26 mg/dL (7-18); Bilirubin, Total 0.6 mg/dL (0.2-1.0); CO2 32.2 mmol/L (21.0-32.0); Calcium 9.4 mg/dL (8.5-10.1); Calculated LDL 128 mg/dL (<100); Chloride 103 mmol/L (98-107); Cholesterol 221 mg/dL (<200); Estimated GFR 92.45 (mL/min/1.73m2); Glucose 108 mg/dL (74-106); HDL Cholesterol 55 mg/dL (>or=40); Potassium 3.9 mmol/L (3.5-5.1); Sodium 142 mmol/L (136-145); Total Protein 7.3 g/dL (6.4-8.2); Triglyceride 194 mg/dL (<150); Vitamin B12 1264 pg/mL (193-986)
== END 2024-10-21 09:28 | disposition home or self-care (01) ==
LOC: LOS 09:27
PROVIDERS: PCP Family Medicine; Referring Provider Family Medicine; Visit Provider Family Medicine
DX: K21.9 Gastro-esophageal reflux disease without esophagitis (principal); I10 Essential (primary) hypertension
CPT/HCPCS: 36415; 80053; 80061; 82607

== ENCOUNTER 2024-10-22 11:30 | Outpatient (CLI) | payer MEDICARE, SELFPAY ==
--- NOTE | 2024-10-22 13:00 | DI.RAD_ITS ---
Exam(s) XR LUMBAR SPINE COMPLETE EXAM: XR LUMBAR SPINE COMPLETE CLINICAL HISTORY: low back pain, lt sided sciatica, chronic, m54.42,g89.29. TECHNIQUE: 2D digital imaging was performed of the lumbar spine. Five images were obtained. AP, lateral, right oblique, left oblique and L5-S1 spot views were obtained. COMPARISON: CR XR LUMBAR SPINE COMPLETE from 10/11/2019 FINDINGS: BONES: No fracture or destructive lesion. There are endplate osteophytes throughout the lumbar spine. Degenerative facet arthropathy is present throughout particularly in the lower lumbar spine. The patient has bilateral total hip arthroplasties. DISKS: There is disc space narrowing throughout the lumbar spine with sparing at the L5-S1 level. ALIGNMENT: There is a right convex lumbar scoliosis again noted. No spondylolysis or spondylolisthesis. SOFT TISSUE: Normal. IMPRESSION: Moderately severe degenerative changes in the lumbar spine. Right convex lumbar scoliosis. DATA REPOSITORY: RADIATION DOSE DELIVERED:
== END 2024-10-22 11:50 ==
LOC: DI 11:31
PROVIDERS: PCP Family Medicine; Visit Provider Family Medicine
DX: M54.42 Lumbago with sciatica, left side (principal); G89.29 Other chronic pain
CPT/HCPCS: 72110